=== PATIENT | female | born 1935 | race Caucasian/White ===

== ENCOUNTER 2018-09-22 12:14 | Inpatient (IN) | payer MEDICARE, MEDICAID ==
[2018-09-22 12:59] LABS: ADD MAN DIFF? NO
[2018-09-22 13:07] LABS: WHITE BLOOD COUNT 10.9 10^3/ul (4.8-10.8)
[2018-09-22 13:07] LABS: ABNORMAL IP MESSAGE 1; BASOPHILS % 0.2 % (0.0-2.0); EOSINOPHILS % 0.1 % (0.0-7.0); HEMATOCRIT 21.2 % (37.0-47.0); LYMPHOCYTES # 1.2 10^3/ul (0.8-2.9); LYMPHOCYTES % 10.8 % (15.0-51.0); MEAN CORPUSCULAR HEMOGLOBIN 28.9 pg (29.0-33.0); MEAN CORPUSCULAR HGB CONC 32.1 g/dl (32.0-37.0); MEAN CORPUSCULAR VOLUME 90.2 fl (82.0-101.0); MEAN PLATELET VOLUME 10.8 fl (7.4-10.4); MONOCYTE # 0.4 10^3/ul (0.3-0.9); NEUTROPHIL # 9.2 10^3/ul (1.6-7.5); NEUTROPHILS % 84.4 % (39.0-77.0); PLATELET COUNT 272 10^3/UL (140-415); RED BLOOD COUNT 2.35 10^6/ul (4.20-5.40)
[2018-09-22 13:16] LABS: HEMOGLOBIN 6.8 g/dl (12.0-16.0); POSITIVE DIFF @See below
[2018-09-22] MEDS: SOD CHLORIDE 0.9% 500 ML IV (13:17)
[2018-09-22 13:26] LABS: INR 1.02; PARTIAL THROMBOPLASTIN TIME 29.3 Sec (23.0-35.0); PROTIME 13.5 Sec (11.9-14.9); PT RATIO 1.1
[2018-09-22] MEDS: SOD CHLORIDE 0.9% 0 ML IV (13:31)
[2018-09-22 13:35] LABS: LIPASE 143 U/L (23-300)
[2018-09-22 13:37] LABS: ALANINE AMINOTRANSFERASE 7 IU/L (13-69); ALBUMIN/GLOBULIN RATIO 1.21; ALKALINE PHOSPHATASE 90 IU/L (42-121); ANION GAP 15 (5-13); ASPARTATE AMINO TRANSFERASE 38 IU/L (15-46); BILIRUBIN,INDIRECT 0.1 mg/dl (0-1.1); BILIRUBIN,TOTAL 0.1 mg/dl (0.2-1.3); BLOOD UREA NITROGEN 82 mg/dl (7-20); CALCIUM 9.1 mg/dl (8.4-10.2); CARBON DIOXIDE 21 mmol/L (21-31); CHLORIDE 112 mmol/L (97-110); CREATININE 2.43 mg/dl (0.44-1.00); GLUCOSE 263 mg/dl (70-220); POTASSIUM 3.6 mmol/L (3.5-5.1); SODIUM 148 mmol/L (135-144); TOTAL PROTEIN 7.3 g/dl (6.1-8.1)
[2018-09-22] MEDS: ONDANSETRON 4 MG INJ IV (13:40)
[2018-09-22] MEDS: PANTOPRAZOLE 40 MG INJ IV (13:41)
[2018-09-22 13:55] LABS: OCCULT BLOOD STOOL POSITIVE (NEGATIVE)
[2018-09-22] MEDS ORDERED: ACETAMINOPHEN 325 MG TAB PO (14:00)
[2018-09-22] MEDS ORDERED: ONDANSETRON 4 MG INJ IV (14:00)
[2018-09-22 14:55] LABS: ANISOCYTOSIS 1+ (0-0); BAND NEUTROPHILS #M 0.1 10^3/ul (0.0-0.6); BAND NEUTROPHILS % (M) 1 % (0-4); BURR CELLS 1+ (0-0); GIANT THROMBO% (M) 1 % (0-0); LYMPHOCYTES #M 1.3 10^3/ul (0.8-2.9); LYMPHOCYTES % (M) 12 % (15-51); MICROCYTOSIS 1+ (0-0); MONOCYTE #M 0.3 10^3/ul (0.3-0.9); MONOCYTES % (M) 3 % (0-11); OVALOCYTES 1+ (0-0); PLATELET ESTIMATE NORMAL; POIKILOCYTOSIS 2+ (0-0); SEG NEUT #M 9.2 10^3/ul (1.6-7.5); SEGMENTED NEUTROPHILS (M) % 84 % (39-77); SMUDGE%M 32 % (0-0)
[2018-09-22] MEDS ORDERED: ACETAMINOPHEN 650 MG SUPP PR (18:30)
[2018-09-22] MEDS: D5W-0.45 NACL + KCL 20 MEQ 1,000 ML IV (18:46)
[2018-09-22] MEDS ORDERED: GLUCAGON 1 MG INJ IM (19:00)
[2018-09-22] MEDS ORDERED: DEXTROSE 50% 50 ML SYRINGE IV ×2 (19:00)
[2018-09-22] MEDS ORDERED: GLUCOSE GEL 15 GRAM TUBE PO ×2 (19:00)
[2018-09-22] MEDS ORDERED: GLUCOSE GEL 15 GRAM TUBE BUCCAL (19:00)
[2018-09-22 19:01] LABS: HEMOGLOBIN A1C 6.1 % (0-5.9)
[2018-09-22] MEDS: INSULIN ASPART [NOVOLOG] 3 ML PEN SC (20:56)
[2018-09-22 22:31] LABS: IMMEDIATE SPIN CROSSMATCH 1 2
[2018-09-22] MEDS: FUROSEMIDE 20 MG INJ IV (23:59)
[2018-09-23] MEDS: INSULIN ASPART [NOVOLOG] 3 ML PEN SC ×4 (00:07→18:05)
[2018-09-23] MEDS: morphine 2 MG INJ IV (00:19)
[2018-09-23] MEDS ORDERED: ACCU-CHEK XX (02:00)
[2018-09-23 03:25] LABS: ADD MAN DIFF? NO
[2018-09-23 03:47] LABS: ALANINE AMINOTRANSFERASE 14 IU/L (13-69); ALBUMIN 3.2 g/dl (3.3-4.9); ALKALINE PHOSPHATASE 65 IU/L (42-121); ANION GAP 9 (5-13); ASPARTATE AMINO TRANSFERASE 79 IU/L (15-46); BILIRUBIN,INDIRECT 0.3 mg/dl (0-1.1); BILIRUBIN,TOTAL 0.3 mg/dl (0.2-1.3); BLOOD UREA NITROGEN 77 mg/dl (7-20); CALCIUM 8.3 mg/dl (8.4-10.2); CARBON DIOXIDE 22 mmol/L (21-31); CHLORIDE 116 mmol/L (97-110); CREATININE 2.27 mg/dl (0.44-1.00); GLUCOSE 203 mg/dl (70-220); POTASSIUM 3.8 mmol/L (3.5-5.1); SODIUM 147 mmol/L (135-144); TOTAL PROTEIN 5.8 g/dl (6.1-8.1)
[2018-09-23 03:54] LABS: PHOSPHORUS 4.2 mg/dl (2.5-4.9)
[2018-09-23 03:54] LABS: CHOL/HDL RATIO 4.3 RATIO; CHOLESTEROL 143 mg/dl (100-200); HDL CHOLESTEROL 33 mg/dl (33-92); LDL CHOLESTEROL,CALCULATED 77 mg/dl; LIPASE 123 U/L (23-300); MAGNESIUM 2.5 mg/dl (1.7-2.5); TRIGLYCERIDES 163 mg/dl (0-149)
[2018-09-23 04:04] LABS: BASOPHIL # 0.1 10^3/ul (0.0-0.1); BASOPHILS % 0.7 % (0.0-2.0); EOSINOPHILS % 0.1 % (0.0-7.0); HEMATOCRIT 25.2 % (37.0-47.0); HEMOGLOBIN 8.2 g/dl (12.0-16.0); LYMPHOCYTES # 1.5 10^3/ul (0.8-2.9); LYMPHOCYTES % 16.7 % (15.0-51.0); MEAN CORPUSCULAR HGB CONC 32.5 g/dl (32.0-37.0); MEAN PLATELET VOLUME 11.2 fl (7.4-10.4); MONOCYTE # 0.8 10^3/ul (0.3-0.9); MONOCYTES % 9.1 % (0.0-11.0); NEUTROPHIL # 6.7 10^3/ul (1.6-7.5); NEUTROPHILS % 73.1 % (39.0-77.0); PLATELET COUNT 188 10^3/UL (140-415); RED BLOOD COUNT 2.83 10^6/ul (4.20-5.40); RED CELL DISTRIBUTION WIDTH 13.9 % (11.5-14.5)
[2018-09-23 04:04] LABS: WHITE BLOOD COUNT 9.1 10^3/ul (4.8-10.8)
[2018-09-23 04:23] LABS: B-TYPE NATRIURETIC PEPTIDE 45200 PG/ML (0-450)
[2018-09-23] MEDS: PANTOPRAZOLE 40 MG INJ IV (05:59)
[2018-09-23] MEDS: D5W-0.45 NACL + KCL 20 MEQ 1,000 ML IV (07:39)
[2018-09-23] MEDS: ATENOLOL 50 MG TAB PO (09:17)
[2018-09-23 12:30] LABS: HEMATOCRIT 26.7 % (37.0-47.0); HEMOGLOBIN 8.7 g/dl (12.0-16.0)
[2018-09-23] MEDS: POTASSIUM CHLORIDE 100 ML IVPB (12:51)
[2018-09-23] MEDS: FUROSEMIDE 40 MG INJ IV (12:51)
[2018-09-23 18:27] LABS: HEMATOCRIT 28.8 % (37.0-47.0); HEMOGLOBIN 9.2 g/dl (12.0-16.0)
[2018-09-23] MEDS: ATORVASTATIN 10 MG TAB PO (21:00)
[2018-09-24] MEDS: INSULIN ASPART [NOVOLOG] 3 ML PEN SC ×5 (00:06→21:02)
[2018-09-24 04:56] LABS: ADD MAN DIFF? NO
[2018-09-24 05:10] LABS: WHITE BLOOD COUNT 8.1 10^3/ul (4.8-10.8)
[2018-09-24 05:10] LABS: BASOPHIL # 0.1 10^3/ul (0.0-0.1); BASOPHILS % 0.6 % (0.0-2.0); EOSINOPHILS # 0.1 10^3/ul (0.0-0.5); EOSINOPHILS % 0.7 % (0.0-7.0); HEMATOCRIT 25.7 % (37.0-47.0); HEMOGLOBIN 8.2 g/dl (12.0-16.0); LYMPHOCYTES # 1.6 10^3/ul (0.8-2.9); LYMPHOCYTES % 19.1 % (15.0-51.0); MEAN CORPUSCULAR HEMOGLOBIN 28.7 pg (29.0-33.0); MEAN CORPUSCULAR HGB CONC 31.9 g/dl (32.0-37.0); MEAN CORPUSCULAR VOLUME 89.9 fl (82.0-101.0); MEAN PLATELET VOLUME 11.4 fl (7.4-10.4); MONOCYTE # 0.5 10^3/ul (0.3-0.9); MONOCYTES % 6.5 % (0.0-11.0); NEUTROPHIL # 5.9 10^3/ul (1.6-7.5); NEUTROPHILS % 72.4 % (39.0-77.0); NUCLEATED RED BLOOD CELLS # 0.1 10^3/ul (0.0-0.0); NUCLEATED RED BLOOD CELLS% 0.9 /100WBC (0.0-0.0); PLATELET COUNT 186 10^3/UL (140-415); RED BLOOD COUNT 2.86 10^6/ul (4.20-5.40); RED CELL DISTRIBUTION WIDTH 14.6 % (11.5-14.5)
[2018-09-24] MEDS: PANTOPRAZOLE 40 MG INJ IV ×3 (05:13→20:54)
[2018-09-24 05:33] LABS: ANION GAP 8 (5-13); BLOOD UREA NITROGEN 78 mg/dl (7-20); CALCIUM 8.6 mg/dl (8.4-10.2); CARBON DIOXIDE 22 mmol/L (21-31); CHLORIDE 117 mmol/L (97-110); CREATININE 2.81 mg/dl (0.44-1.00); GLUCOSE 136 mg/dl (70-220); POTASSIUM 4.6 mmol/L (3.5-5.1); SODIUM 147 mmol/L (135-144)
[2018-09-24 08:06] LABS: HEMATOCRIT 26.7 % (37.0-47.0); HEMOGLOBIN 8.4 g/dl (12.0-16.0)
[2018-09-24 08:26] LABS: MAGNESIUM 2.3 mg/dl (1.7-2.5)
[2018-09-24] MEDS: ATENOLOL 50 MG TAB PO (09:00)
[2018-09-24] MEDS: D5W-0.45 NACL + KCL 20 MEQ 1,000 ML IV (09:15)
[2018-09-24] MEDS: DEXTROSE 5%-0.45% NACL 1,000 ML IV (15:48)
[2018-09-24 19:35] LABS: HEMATOCRIT 25.6 % (37.0-47.0); HEMOGLOBIN 8.2 g/dl (12.0-16.0)
[2018-09-24] MEDS: ATORVASTATIN 10 MG TAB PO (20:54)
[2018-09-25 00:39] LABS: HEMATOCRIT 27.4 % (37.0-47.0); HEMOGLOBIN 8.8 g/dl (12.0-16.0)
[2018-09-25 05:47] LABS: WHITE BLOOD COUNT 10.8 10^3/ul (4.8-10.8)
[2018-09-25 05:47] LABS: ADD MAN DIFF? NO; BASOPHIL # 0.1 10^3/ul (0.0-0.1); BASOPHILS % 0.7 % (0.0-2.0); EOSINOPHILS # 0.2 10^3/ul (0.0-0.5); EOSINOPHILS % 1.6 % (0.0-7.0); HEMATOCRIT 27.9 % (37.0-47.0); HEMOGLOBIN 8.7 g/dl (12.0-16.0); LYMPHOCYTES # 3.3 10^3/ul (0.8-2.9); LYMPHOCYTES % 30.4 % (15.0-51.0); MEAN CORPUSCULAR HEMOGLOBIN 29.4 pg (29.0-33.0); MEAN CORPUSCULAR HGB CONC 31.2 g/dl (32.0-37.0); MEAN CORPUSCULAR VOLUME 94.3 fl (82.0-101.0); MEAN PLATELET VOLUME 11.7 fl (7.4-10.4); MONOCYTE # 0.8 10^3/ul (0.3-0.9); MONOCYTES % 7.6 % (0.0-11.0); NEUTROPHIL # 6.4 10^3/ul (1.6-7.5); NEUTROPHILS % 59.2 % (39.0-77.0); NUCLEATED RED BLOOD CELLS # 0.1 10^3/ul (0.0-0.0); NUCLEATED RED BLOOD CELLS% 1.2 /100WBC (0.0-0.0); PLATELET COUNT 183 10^3/UL (140-415); RED BLOOD COUNT 2.96 10^6/ul (4.20-5.40); RED CELL DISTRIBUTION WIDTH 14.5 % (11.5-14.5)
[2018-09-25 06:23] LABS: ALANINE AMINOTRANSFERASE 18 IU/L (13-69); ALBUMIN 3.3 g/dl (3.3-4.9); ALBUMIN/GLOBULIN RATIO 1.13; ALKALINE PHOSPHATASE 65 IU/L (42-121); ANION GAP 10 (5-13); ASPARTATE AMINO TRANSFERASE 43 IU/L (15-46); BILIRUBIN,INDIRECT 0.5 mg/dl (0-1.1); BILIRUBIN,TOTAL 0.5 mg/dl (0.2-1.3); BLOOD UREA NITROGEN 77 mg/dl (7-20); CALCIUM 8.6 mg/dl (8.4-10.2); CARBON DIOXIDE 18 mmol/L (21-31); CHLORIDE 119 mmol/L (97-110); GLUCOSE 134 mg/dl (70-220); POTASSIUM 4.6 mmol/L (3.5-5.1); SODIUM 147 mmol/L (135-144); TOTAL PROTEIN 6.2 g/dl (6.1-8.1)
[2018-09-25] MEDS ORDERED: PROPOFOL 200 MG INJ (07:00)
[2018-09-25] MEDS ORDERED: LIDOCAINE 2% (SDV) 5 ML INJ (07:00)
[2018-09-25] MEDS: ATENOLOL 50 MG TAB PO (08:12)
[2018-09-25] MEDS: INSULIN ASPART [NOVOLOG] 3 ML PEN SC ×4 (08:33→21:00)
[2018-09-25] MEDS: PANTOPRAZOLE 40 MG INJ IV ×2 (10:38→20:57)
[2018-09-25] MEDS: DEXTROSE 5%-0.45% NACL 1,000 ML IV (10:39)
[2018-09-25] MEDS ORDERED: FENTAnyl 50 MCG/ML VIAL (10:59)
[2018-09-25 13:50] LABS: ADD UMIC YES; UR AMORPHOUS CRYSTAL MODERATE /HPF (NONE SEEN); UR ASCORBIC ACID 20 mg/dL (NEGATIVE); UR BACTERIA MODERATE /HPF (NONE SEEN); UR BILIRUBIN (Dip) NEGATIVE (NEGATIVE); UR BLOOD (Dip) 1+ mg/dL (NEGATIVE); UR CLARITY CLOUDY (CLEAR); UR COLOR AMBER (YELLOW); UR GLUCOSE (Dip) NEGATIVE (NEGATIVE); UR KETONES (Dip) TRACE mg/dL (NEGATIVE); UR LEUKOCYTE ESTERASE (Dip) 2+ Leu/ul (NEGATIVE); UR NITRITE (Dip) NEGATIVE (NEGATIVE); UR RBC 13 /HPF (0-5); UR SPECIFIC GRAVITY (Dip) 1.016 (1.003-1.030); UR TOTAL PROTEIN (Dip) 2+ mg/dl (NEGATIVE); UR UROBILINOGEN (Dip) NEGATIVE (NEGATIVE); UR WBC 116 /HPF (0-5)
[2018-09-25 14:11] LABS: PROTEIN/CREAT RATIO 2.16 RATIO
[2018-09-25] MEDS ORDERED: NITROGLYCERIN 2% 1 GM OINT PKT TD (19:00)
[2018-09-25] MEDS: METOPROLOL 5 MG INJ IV (20:00)
[2018-09-25] MEDS: ATORVASTATIN 10 MG TAB PO (20:56)
[2018-09-26] MEDS: DEXTROSE 5%-0.45% NACL 1,000 ML IV (04:05)
[2018-09-26 05:11] LABS: ADD MAN DIFF? NO
[2018-09-26 05:20] LABS: BASOPHILS % 0.4 % (0.0-2.0); EOSINOPHILS # 0.1 10^3/ul (0.0-0.5); EOSINOPHILS % 1.3 % (0.0-7.0); HEMATOCRIT 27.7 % (37.0-47.0); HEMOGLOBIN 8.7 g/dl (12.0-16.0); LYMPHOCYTES # 1.9 10^3/ul (0.8-2.9); LYMPHOCYTES % 20.1 % (15.0-51.0); MEAN CORPUSCULAR HEMOGLOBIN 29.1 pg (29.0-33.0); MEAN CORPUSCULAR HGB CONC 31.4 g/dl (32.0-37.0); MEAN CORPUSCULAR VOLUME 92.6 fl (82.0-101.0); MEAN PLATELET VOLUME 11.4 fl (7.4-10.4); MONOCYTE # 0.6 10^3/ul (0.3-0.9); MONOCYTES % 6.7 % (0.0-11.0); NEUTROPHIL # 6.5 10^3/ul (1.6-7.5); NUCLEATED RED BLOOD CELLS # 0.2 10^3/ul (0.0-0.0); NUCLEATED RED BLOOD CELLS% 2.1 /100WBC (0.0-0.0); PLATELET COUNT 180 10^3/UL (140-415); RED BLOOD COUNT 2.99 10^6/ul (4.20-5.40); RED CELL DISTRIBUTION WIDTH 14.4 % (11.5-14.5)
[2018-09-26 05:20] LABS: WHITE BLOOD COUNT 9.2 10^3/ul (4.8-10.8)
[2018-09-26 05:39] LABS: INR 1.15; PROTIME 14.8 Sec (11.9-14.9); PT RATIO 1.2
[2018-09-26 05:40] LABS: PARTIAL THROMBOPLASTIN TIME 31.3 Sec (23.0-35.0)
[2018-09-26 05:48] LABS: ALANINE AMINOTRANSFERASE 14 IU/L (13-69); ALBUMIN 3.2 g/dl (3.3-4.9); ALKALINE PHOSPHATASE 80 IU/L (42-121); ANION GAP 9 (5-13); ASPARTATE AMINO TRANSFERASE 31 IU/L (15-46); BILIRUBIN,INDIRECT 0.6 mg/dl (0-1.1); BILIRUBIN,TOTAL 0.6 mg/dl (0.2-1.3); BLOOD UREA NITROGEN 69 mg/dl (7-20); CALCIUM 8.6 mg/dl (8.4-10.2); CARBON DIOXIDE 19 mmol/L (21-31); CHLORIDE 121 mmol/L (97-110); CREATININE 2.69 mg/dl (0.44-1.00); GLUCOSE 202 mg/dl (70-220); POTASSIUM 4.8 mmol/L (3.5-5.1); SODIUM 149 mmol/L (135-144); TOTAL PROTEIN 6.4 g/dl (6.1-8.1)
[2018-09-26] MEDS: METOPROLOL 5 MG INJ IV ×4 (06:21→17:38)
[2018-09-26] MEDS: PANTOPRAZOLE 40 MG INJ IV ×2 (08:19→20:48)
[2018-09-26] MEDS: INSULIN ASPART [NOVOLOG] 3 ML PEN SC ×4 (08:23→20:49)
[2018-09-26 10:01] LABS: PARATHYROID HORMONE 220.1 pg/ml (24.0-73.0)
[2018-09-26] MEDS: BUMETANIDE 1 MG INJ IV ×2 (10:17→17:38)
[2018-09-26] MEDS: DEXTROSE 5% 1,000 ML IV ×2 (10:17→18:48)
[2018-09-26] MEDS: INSULIN GLARGINE [LANTus] (100 UNITS/ML) SYG SC (11:55)
[2018-09-26] MEDS: NITROGLYCERIN 2% 1 GM OINT PKT TD ×2 (13:08→22:00)
[2018-09-26] MEDS: morphine 2 MG INJ IV (15:32)
[2018-09-26 15:34] LABS: SODIUM,URINE RANDOM 22 mmol/L (30-90)
[2018-09-26 15:34] LABS: CREATININE,URINE RANDOM 84.85 mg/dl (20-320)
[2018-09-26] MEDS: ATORVASTATIN 10 MG TAB PO (20:48)
[2018-09-27 05:42] LABS: ADD MAN DIFF? NO
[2018-09-27 05:47] LABS: BASOPHIL # 0.1 10^3/ul (0.0-0.1); BASOPHILS % 0.5 % (0.0-2.0); EOSINOPHILS # 0.4 10^3/ul (0.0-0.5); EOSINOPHILS % 3.6 % (0.0-7.0); HEMATOCRIT 27.9 % (37.0-47.0); LYMPHOCYTES # 2.1 10^3/ul (0.8-2.9); LYMPHOCYTES % 19.7 % (15.0-51.0); MEAN CORPUSCULAR HEMOGLOBIN 29.4 pg (29.0-33.0); MEAN CORPUSCULAR HGB CONC 32.3 g/dl (32.0-37.0); MEAN CORPUSCULAR VOLUME 91.2 fl (82.0-101.0); MEAN PLATELET VOLUME 11.3 fl (7.4-10.4); MONOCYTE # 0.8 10^3/ul (0.3-0.9); MONOCYTES % 7.9 % (0.0-11.0); NEUTROPHIL # 7.2 10^3/ul (1.6-7.5); NEUTROPHILS % 67.8 % (39.0-77.0); NUCLEATED RED BLOOD CELLS # 0.2 10^3/ul (0.0-0.0); NUCLEATED RED BLOOD CELLS% 1.5 /100WBC (0.0-0.0); PLATELET COUNT 181 10^3/UL (140-415); RED BLOOD COUNT 3.06 10^6/ul (4.20-5.40); RED CELL DISTRIBUTION WIDTH 14.5 % (11.5-14.5)
[2018-09-27 05:47] LABS: WHITE BLOOD COUNT 10.7 10^3/ul (4.8-10.8)
[2018-09-27] MEDS: DEXTROSE 5% 1,000 ML IV (05:47)
[2018-09-27] MEDS: morphine 2 MG INJ IV (05:50)
[2018-09-27] MEDS: METOPROLOL 5 MG INJ IV ×5 (05:51→22:20)
[2018-09-27] MEDS: NITROGLYCERIN 2% 1 GM OINT PKT TD ×3 (05:52→22:21)
[2018-09-27] MEDS: BUMETANIDE 1 MG INJ IV (05:52)
[2018-09-27 06:20] LABS: ANION GAP 9 (5-13); BLOOD UREA NITROGEN 60 mg/dl (7-20); CALCIUM 8.4 mg/dl (8.4-10.2); CARBON DIOXIDE 19 mmol/L (21-31); CHLORIDE 118 mmol/L (97-110); CREATININE 2.66 mg/dl (0.44-1.00); GLUCOSE 90 mg/dl (70-220); POTASSIUM 3.2 mmol/L (3.5-5.1); SODIUM 146 mmol/L (135-144)
[2018-09-27 06:26] LABS: ALANINE AMINOTRANSFERASE 20 IU/L (13-69); ALBUMIN/GLOBULIN RATIO 1.11; ALKALINE PHOSPHATASE 70 IU/L (42-121); ANION GAP 9 (5-13); ASPARTATE AMINO TRANSFERASE 19 IU/L (15-46); BILIRUBIN,INDIRECT 0.6 mg/dl (0-1.1); BILIRUBIN,TOTAL 0.6 mg/dl (0.2-1.3); BLOOD UREA NITROGEN 61 mg/dl (7-20); CALCIUM 8.6 mg/dl (8.4-10.2); CARBON DIOXIDE 19 mmol/L (21-31); CHLORIDE 116 mmol/L (97-110); CREATININE 2.62 mg/dl (0.44-1.00); GLUCOSE 88 mg/dl (70-220); MAGNESIUM 2.2 mg/dl (1.7-2.5); PHOSPHORUS 3.4 mg/dl (2.5-4.9); POTASSIUM 3.2 mmol/L (3.5-5.1); SODIUM 144 mmol/L (135-144); TOTAL PROTEIN 5.7 g/dl (6.1-8.1)
[2018-09-27] MEDS ORDERED: CIPRO 400 MG/200 ML D5W IVPB (07:00)
[2018-09-27 07:20] LABS: B-TYPE NATRIURETIC PEPTIDE 75800 PG/ML (0-450)
[2018-09-27] MEDS ORDERED: INSULIN GLARGINE [LANTus] (100 UNITS/ML) SYG SC (08:00)
[2018-09-27] MEDS: INSULIN ASPART [NOVOLOG] 3 ML PEN SC ×4 (08:00→21:00)
[2018-09-27] MEDS: INSULIN GLARGINE [LANTus] (100 UNITS/ML) SYG SC (08:00)
[2018-09-27] MEDS: PANTOPRAZOLE 40 MG INJ IV ×2 (08:34→22:22)
[2018-09-27] MEDS: POTASSIUM CHLORIDE 100 ML IVPB ×2 (10:46→16:42)
[2018-09-27] MEDS: MIDAZOLAM 1 MG/ML 2 ML INJ (13:45)
[2018-09-27] MEDS: FENTAnyl 50 MCG/ML VIAL (13:45)
[2018-09-27] MEDS: ESMOLOL 10 ML (13:46)
[2018-09-27] MEDS: LIDOCAINE 2% (SDV) 5 ML INJ (13:46)
[2018-09-27] MEDS: PHENYLephrine (100 MCG/ML) 10ML SYG (13:46)
[2018-09-27] MEDS: ETOMIDATE 20 MG INJ (13:46)
[2018-09-27] MEDS: CEFTRIAXONE 1 GM/50 ML (PMX) 50 ML IVPB (17:49)
[2018-09-27] MEDS: ATORVASTATIN 10 MG TAB PO (22:19)
[2018-09-28] MEDS: DEXTROSE 5% 1,000 ML IV (01:00)
[2018-09-28 05:43] LABS: ADD MAN DIFF? NO
[2018-09-28 05:46] LABS: BASOPHILS % 0.3 % (0.0-2.0); EOSINOPHILS # 0.2 10^3/ul (0.0-0.5); EOSINOPHILS % 1.4 % (0.0-7.0); HEMATOCRIT 26.6 % (37.0-47.0); HEMOGLOBIN 8.5 g/dl (12.0-16.0); LYMPHOCYTES # 1.6 10^3/ul (0.8-2.9); LYMPHOCYTES % 13.5 % (15.0-51.0); MEAN CORPUSCULAR HEMOGLOBIN 29.2 pg (29.0-33.0); MEAN CORPUSCULAR VOLUME 91.4 fl (82.0-101.0); MEAN PLATELET VOLUME 11.5 fl (7.4-10.4); MONOCYTE # 0.7 10^3/ul (0.3-0.9); NEUTROPHIL # 9.2 10^3/ul (1.6-7.5); NEUTROPHILS % 78.1 % (39.0-77.0); NUCLEATED RED BLOOD CELLS # 0.1 10^3/ul (0.0-0.0); NUCLEATED RED BLOOD CELLS% 0.7 /100WBC (0.0-0.0); PLATELET COUNT 157 10^3/UL (140-415); RED BLOOD COUNT 2.91 10^6/ul (4.20-5.40); RED CELL DISTRIBUTION WIDTH 14.3 % (11.5-14.5)
[2018-09-28 05:46] LABS: WHITE BLOOD COUNT 11.7 10^3/ul (4.8-10.8)
[2018-09-28] MEDS: METOPROLOL 5 MG INJ IV (06:04)
[2018-09-28] MEDS: NITROGLYCERIN 2% 1 GM OINT PKT TD ×3 (06:04→21:05)
[2018-09-28 06:28] LABS: ALANINE AMINOTRANSFERASE 16 IU/L (13-69); ALBUMIN 2.7 g/dl (3.3-4.9); ALBUMIN/GLOBULIN RATIO 0.96; ALKALINE PHOSPHATASE 71 IU/L (42-121); ANION GAP 7 (5-13); ASPARTATE AMINO TRANSFERASE 15 IU/L (15-46); BILIRUBIN,INDIRECT 0.5 mg/dl (0-1.1); BILIRUBIN,TOTAL 0.5 mg/dl (0.2-1.3); BLOOD UREA NITROGEN 56 mg/dl (7-20); CALCIUM 8.1 mg/dl (8.4-10.2); CARBON DIOXIDE 21 mmol/L (21-31); CHLORIDE 113 mmol/L (97-110); CREATININE 2.69 mg/dl (0.44-1.00); GLUCOSE 207 mg/dl (70-220); POTASSIUM 3.7 mmol/L (3.5-5.1); SODIUM 141 mmol/L (135-144); TOTAL PROTEIN 5.5 g/dl (6.1-8.1)
[2018-09-28] MEDS: PANTOPRAZOLE 40 MG INJ IV ×2 (08:50→21:04)
[2018-09-28] MEDS: INSULIN ASPART [NOVOLOG] 3 ML PEN SC ×2 (08:53→12:00)
[2018-09-28] MEDS: INSULIN GLARGINE [LANTus] (100 UNITS/ML) SYG SC (08:54)
[2018-09-28] MEDS: METOPROLOL 25 MG TAB GTB ×3 (09:30→21:04)
[2018-09-28] MEDS: POTASSIUM CHLORIDE 20 MEQ POWDER FOR ORAL SOLN GTB (12:09)
[2018-09-28] MEDS: BUMETANIDE 1 MG INJ IV (12:10)
[2018-09-28] MEDS: CEFTRIAXONE 1 GM/50 ML (PMX) 50 ML IVPB (17:09)
[2018-09-28] MEDS: Insulin NOVOLOG SS MODERATE Algorithm(NPO/TPN/ENTERAL FEEDS) SC (17:11)
[2018-09-28] MEDS ORDERED: INSULIN ASPART [NOVOLOG] 3 ML PEN SC (18:00)
[2018-09-28 20:40] LABS: TOTAL IRON BINDING CAPACITY 239 ug/dl (241-421)
[2018-09-28 20:41] LABS: IRON < 10 ug/dl (35-150)
[2018-09-28] MEDS: ATORVASTATIN 10 MG TAB PO (21:04)
[2018-09-28 21:07] LABS: FERRITIN 25.8 ng/ml (11.1-264.0)
[2018-09-29] MEDS: Insulin NOVOLOG SS MODERATE Algorithm(NPO/TPN/ENTERAL FEEDS) SC ×4 (00:28→17:51)
[2018-09-29] MEDS: EPOETIN ALFA-EPBX (ESRD) 10,000 UNIT/ML VIAL SC (02:21)
[2018-09-29] MEDS: LORAZEPAM 0.5 MG TAB PO (05:54)
[2018-09-29 06:15] LABS: ADD MAN DIFF? NO
[2018-09-29] MEDS: NITROGLYCERIN 2% 1 GM OINT PKT TD ×3 (06:32→21:17)
[2018-09-29 06:37] LABS: BASOPHILS % 0.3 % (0.0-2.0); EOSINOPHILS # 0.3 10^3/ul (0.0-0.5); EOSINOPHILS % 2.6 % (0.0-7.0); HEMATOCRIT 25.5 % (37.0-47.0); HEMOGLOBIN 8.2 g/dl (12.0-16.0); LYMPHOCYTES # 1.5 10^3/ul (0.8-2.9); LYMPHOCYTES % 14.7 % (15.0-51.0); MEAN CORPUSCULAR HEMOGLOBIN 28.7 pg (29.0-33.0); MEAN CORPUSCULAR HGB CONC 32.2 g/dl (32.0-37.0); MEAN CORPUSCULAR VOLUME 89.2 fl (82.0-101.0); MEAN PLATELET VOLUME 11.6 fl (7.4-10.4); MONOCYTE # 0.7 10^3/ul (0.3-0.9); MONOCYTES % 6.9 % (0.0-11.0); NEUTROPHIL # 7.5 10^3/ul (1.6-7.5); NEUTROPHILS % 74.8 % (39.0-77.0); NUCLEATED RED BLOOD CELLS% 0.3 /100WBC (0.0-0.0); PLATELET COUNT 155 10^3/UL (140-415); RED BLOOD COUNT 2.86 10^6/ul (4.20-5.40); RED CELL DISTRIBUTION WIDTH 14.3 % (11.5-14.5)
[2018-09-29 06:56] LABS: ALANINE AMINOTRANSFERASE 15 IU/L (13-69); ALBUMIN 2.7 g/dl (3.3-4.9); ALBUMIN/GLOBULIN RATIO 0.96; ALKALINE PHOSPHATASE 89 IU/L (42-121); ANION GAP 6 (5-13); ASPARTATE AMINO TRANSFERASE 16 IU/L (15-46); BILIRUBIN,INDIRECT 0.3 mg/dl (0-1.1); BILIRUBIN,TOTAL 0.3 mg/dl (0.2-1.3); BLOOD UREA NITROGEN 58 mg/dl (7-20); CALCIUM 7.7 mg/dl (8.4-10.2); CARBON DIOXIDE 22 mmol/L (21-31); CHLORIDE 111 mmol/L (97-110); CREATININE 2.72 mg/dl (0.44-1.00); GLUCOSE 171 mg/dl (70-220); POTASSIUM 3.9 mmol/L (3.5-5.1); SODIUM 139 mmol/L (135-144); TOTAL PROTEIN 5.5 g/dl (6.1-8.1)
[2018-09-29] MEDS: PANTOPRAZOLE 40 MG INJ IV ×2 (08:52→21:17)
[2018-09-29] MEDS: POTASSIUM CHLORIDE 20 MEQ POWDER FOR ORAL SOLN GTB (08:52)
[2018-09-29] MEDS: DONEPEZIL 5 MG TAB PO (08:52)
[2018-09-29] MEDS: METOPROLOL 25 MG TAB GTB ×2 (08:53→21:17)
[2018-09-29] MEDS: BUMETANIDE 1 MG INJ IV (08:53)
[2018-09-29] MEDS: INSULIN GLARGINE [LANTus] (100 UNITS/ML) SYG SC (09:08)
[2018-09-29] MEDS: CEFTRIAXONE 1 GM/50 ML (PMX) 50 ML IVPB (17:36)
[2018-09-29] MEDS: ATORVASTATIN 10 MG TAB PO (21:17)
[2018-09-30] MEDS: Insulin NOVOLOG SS MODERATE Algorithm(NPO/TPN/ENTERAL FEEDS) SC ×4 (00:12→17:15)
[2018-09-30] MEDS: LORAZEPAM 0.5 MG TAB PO (04:14)
[2018-09-30] MEDS: morphine 2 MG INJ IV (04:14)
[2018-09-30 06:00] LABS: ADD MAN DIFF? NO
[2018-09-30 06:06] LABS: BASOPHIL # 0.1 10^3/ul (0.0-0.1); BASOPHILS % 0.5 % (0.0-2.0); EOSINOPHILS # 0.4 10^3/ul (0.0-0.5); HEMATOCRIT 28.5 % (37.0-47.0); HEMOGLOBIN 9.1 g/dl (12.0-16.0); LYMPHOCYTES # 1.9 10^3/ul (0.8-2.9); LYMPHOCYTES % 18.2 % (15.0-51.0); MEAN CORPUSCULAR HEMOGLOBIN 28.8 pg (29.0-33.0); MEAN CORPUSCULAR HGB CONC 31.9 g/dl (32.0-37.0); MEAN CORPUSCULAR VOLUME 90.2 fl (82.0-101.0); MEAN PLATELET VOLUME 11.5 fl (7.4-10.4); MONOCYTE # 0.8 10^3/ul (0.3-0.9); MONOCYTES % 7.9 % (0.0-11.0); NEUTROPHILS % 68.8 % (39.0-77.0); PLATELET COUNT 187 10^3/UL (140-415); RED BLOOD COUNT 3.16 10^6/ul (4.20-5.40); RED CELL DISTRIBUTION WIDTH 14.3 % (11.5-14.5)
[2018-09-30 06:06] LABS: WHITE BLOOD COUNT 10.2 10^3/ul (4.8-10.8)
[2018-09-30] MEDS: NITROGLYCERIN 2% 1 GM OINT PKT TD ×3 (06:22→21:28)
[2018-09-30 06:25] LABS: IRON 14 ug/dl (35-150)
[2018-09-30 06:34] LABS: % IRON SATURATION 6 % SAT (22-52); TOTAL IRON BINDING CAPACITY 242 ug/dl (241-421)
[2018-09-30 06:39] LABS: ALANINE AMINOTRANSFERASE 12 IU/L (13-69); ALBUMIN 3.1 g/dl (3.3-4.9); ALBUMIN/GLOBULIN RATIO 1.03; ALKALINE PHOSPHATASE 113 IU/L (42-121); ANION GAP 7 (5-13); ASPARTATE AMINO TRANSFERASE 16 IU/L (15-46); BILIRUBIN,INDIRECT 0.3 mg/dl (0-1.1); BILIRUBIN,TOTAL 0.3 mg/dl (0.2-1.3); BLOOD UREA NITROGEN 67 mg/dl (7-20); CARBON DIOXIDE 26 mmol/L (21-31); CHLORIDE 107 mmol/L (97-110); CREATININE 2.74 mg/dl (0.44-1.00); GLUCOSE 139 mg/dl (70-220); PHOSPHORUS 3.2 mg/dl (2.5-4.9); POTASSIUM 4.3 mmol/L (3.5-5.1); SODIUM 140 mmol/L (135-144); TOTAL PROTEIN 6.1 g/dl (6.1-8.1)
[2018-09-30 07:05] LABS: FERRITIN 28.8 ng/ml (11.1-264.0)
[2018-09-30] MEDS: METOPROLOL 25 MG TAB GTB ×2 (08:41→21:27)
[2018-09-30] MEDS: DONEPEZIL 5 MG TAB PO (08:41)
[2018-09-30] MEDS: PANTOPRAZOLE 40 MG INJ IV ×2 (08:41→21:27)
[2018-09-30] MEDS: INSULIN GLARGINE [LANTus] (100 UNITS/ML) SYG SC (08:52)
[2018-09-30] MEDS: CIPROFLOXACIN 250 MG TAB GTB (17:41)
[2018-09-30] MEDS: ATORVASTATIN 10 MG TAB PO (21:27)
[2018-10-01] MEDS: CIPROFLOXACIN 250 MG TAB GTB ×2 (05:04→17:25)
[2018-10-01] MEDS: NITROGLYCERIN 2% 1 GM OINT PKT TD ×3 (05:04→21:57)
[2018-10-01] MEDS: Insulin NOVOLOG SS MODERATE Algorithm(NPO/TPN/ENTERAL FEEDS) SC ×4 (05:05→17:31)
[2018-10-01 06:06] LABS: ADD MAN DIFF? NO
[2018-10-01 06:09] LABS: BASOPHIL # 0.1 10^3/ul (0.0-0.1); BASOPHILS % 0.7 % (0.0-2.0); EOSINOPHILS # 0.5 10^3/ul (0.0-0.5); EOSINOPHILS % 5.5 % (0.0-7.0); HEMOGLOBIN 8.6 g/dl (12.0-16.0); LYMPHOCYTES # 2.2 10^3/ul (0.8-2.9); LYMPHOCYTES % 25.2 % (15.0-51.0); MEAN CORPUSCULAR HEMOGLOBIN 28.8 pg (29.0-33.0); MEAN CORPUSCULAR HGB CONC 31.9 g/dl (32.0-37.0); MEAN CORPUSCULAR VOLUME 90.3 fl (82.0-101.0); MEAN PLATELET VOLUME 11.4 fl (7.4-10.4); MONOCYTE # 0.8 10^3/ul (0.3-0.9); MONOCYTES % 8.9 % (0.0-11.0); NEUTROPHIL # 5.2 10^3/ul (1.6-7.5); NEUTROPHILS % 59.2 % (39.0-77.0); PLATELET COUNT 171 10^3/UL (140-415); RED BLOOD COUNT 2.99 10^6/ul (4.20-5.40); RED CELL DISTRIBUTION WIDTH 14.1 % (11.5-14.5)
[2018-10-01 06:09] LABS: WHITE BLOOD COUNT 8.7 10^3/ul (4.8-10.8)
[2018-10-01 06:25] LABS: PHOSPHORUS 3.2 mg/dl (2.5-4.9)
[2018-10-01 06:25] LABS: MAGNESIUM 2.1 mg/dl (1.7-2.5)
[2018-10-01 06:51] LABS: ALANINE AMINOTRANSFERASE 16 IU/L (13-69); ALBUMIN 2.9 g/dl (3.3-4.9); ALBUMIN/GLOBULIN RATIO 0.87; ALKALINE PHOSPHATASE 100 IU/L (42-121); ANION GAP 8 (5-13); ASPARTATE AMINO TRANSFERASE 15 IU/L (15-46); BILIRUBIN,INDIRECT 0.3 mg/dl (0-1.1); BILIRUBIN,TOTAL 0.3 mg/dl (0.2-1.3); BLOOD UREA NITROGEN 70 mg/dl (7-20); CARBON DIOXIDE 27 mmol/L (21-31); CHLORIDE 106 mmol/L (97-110); CREATININE 2.55 mg/dl (0.44-1.00); GLUCOSE 90 mg/dl (70-220); POTASSIUM 4.6 mmol/L (3.5-5.1); SODIUM 141 mmol/L (135-144); TOTAL PROTEIN 6.2 g/dl (6.1-8.1)
[2018-10-01] MEDS: INSULIN GLARGINE [LANTus] (100 UNITS/ML) SYG SC (07:58)
[2018-10-01] MEDS: PANTOPRAZOLE 40 MG INJ IV ×2 (09:09→21:57)
[2018-10-01] MEDS: METOPROLOL 25 MG TAB GTB ×2 (09:10→21:57)
[2018-10-01] MEDS: DONEPEZIL 5 MG TAB PO (09:10)
[2018-10-01] MEDS: POLYETHYLENE GLYCOL 17 GM PACKET GTB (10:15)
[2018-10-01] MEDS: DOCUSATE SODIUM 100 MG CAP PO (11:36)
[2018-10-01] MEDS: BISACODYL (EC) 5 MG TAB PO (11:37)
[2018-10-01] MEDS: DOCUSATE SODIUM 10 MG/ML (10ML CUP) GTB ×2 (11:42→21:57)
[2018-10-01] MEDS: BISACODYL 10 MG SUPP PR (11:42)
[2018-10-01] MEDS: ONDANSETRON 4 MG INJ IV (12:11)
[2018-10-01] MEDS: METOCLOPRAMIDE 10 MG INJ IV ×2 (14:47→21:57)
[2018-10-01] MEDS ORDERED: EPOETIN ALFA-EPBX (ESRD) 10,000 UNIT/ML VIAL SC (17:00)
[2018-10-01] MEDS: EPOETIN ALFA-EPBX (ESRD) 10,000 UNIT/ML VIAL SC (17:26)
[2018-10-01] MEDS: ATORVASTATIN 10 MG TAB PO (21:57)
[2018-10-02] MEDS: CIPROFLOXACIN 250 MG TAB GTB ×2 (05:40→18:31)
[2018-10-02] MEDS: METOCLOPRAMIDE 10 MG INJ IV ×3 (05:40→21:02)
[2018-10-02] MEDS: NITROGLYCERIN 2% 1 GM OINT PKT TD ×3 (05:41→21:03)
[2018-10-02] MEDS: Insulin NOVOLOG SS MODERATE Algorithm(NPO/TPN/ENTERAL FEEDS) SC ×4 (05:51→18:52)
[2018-10-02 06:35] LABS: ADD MAN DIFF? NO
[2018-10-02 06:42] LABS: WHITE BLOOD COUNT 6.9 10^3/ul (4.8-10.8)
[2018-10-02 06:42] LABS: BASOPHIL # 0.1 10^3/ul (0.0-0.1); EOSINOPHILS # 0.3 10^3/ul (0.0-0.5); EOSINOPHILS % 3.8 % (0.0-7.0); HEMATOCRIT 25.9 % (37.0-47.0); HEMOGLOBIN 8.3 g/dl (12.0-16.0); LYMPHOCYTES # 1.6 10^3/ul (0.8-2.9); LYMPHOCYTES % 22.7 % (15.0-51.0); MEAN CORPUSCULAR HEMOGLOBIN 28.8 pg (29.0-33.0); MEAN CORPUSCULAR VOLUME 89.9 fl (82.0-101.0); MEAN PLATELET VOLUME 11.5 fl (7.4-10.4); MONOCYTE # 0.9 10^3/ul (0.3-0.9); MONOCYTES % 12.6 % (0.0-11.0); NEUTROPHIL # 4.1 10^3/ul (1.6-7.5); NEUTROPHILS % 59.5 % (39.0-77.0); PLATELET COUNT 169 10^3/UL (140-415); RED BLOOD COUNT 2.88 10^6/ul (4.20-5.40)
[2018-10-02 07:23] LABS: ANION GAP 8 (5-13); BLOOD UREA NITROGEN 71 mg/dl (7-20); CARBON DIOXIDE 27 mmol/L (21-31); CHLORIDE 104 mmol/L (97-110); GLUCOSE 86 mg/dl (70-220); MAGNESIUM 2.3 mg/dl (1.7-2.5); POTASSIUM 4.3 mmol/L (3.5-5.1); SODIUM 139 mmol/L (135-144)
[2018-10-02 07:40] LABS: CALCIUM 8.1 mg/dl (8.4-10.2)
[2018-10-02] MEDS: METOPROLOL 25 MG TAB GTB ×2 (09:35→21:03)
[2018-10-02] MEDS: DONEPEZIL 5 MG TAB PO (09:35)
[2018-10-02] MEDS: PANTOPRAZOLE 40 MG INJ IV ×2 (09:35→21:03)
[2018-10-02] MEDS: DOCUSATE SODIUM 10 MG/ML (10ML CUP) GTB ×2 (09:36→21:01)
[2018-10-02] MEDS: POLYETHYLENE GLYCOL 17 GM PACKET GTB (09:36)
[2018-10-02] MEDS: INSULIN GLARGINE [LANTus] (100 UNITS/ML) SYG SC (10:37)
[2018-10-02] MEDS: ATORVASTATIN 10 MG TAB PO (21:03)
[2018-10-03] MEDS: METOCLOPRAMIDE 10 MG INJ IV ×3 (05:34→20:55)
[2018-10-03] MEDS: NITROGLYCERIN 2% 1 GM OINT PKT TD ×3 (05:37→20:55)
[2018-10-03] MEDS: Insulin NOVOLOG SS MODERATE Algorithm(NPO/TPN/ENTERAL FEEDS) SC ×4 (05:45→17:40)
[2018-10-03] MEDS: CIPROFLOXACIN 250 MG TAB GTB ×2 (06:02→17:36)
[2018-10-03 06:14] LABS: ADD MAN DIFF? NO
[2018-10-03 06:21] LABS: WHITE BLOOD COUNT 8.8 10^3/ul (4.8-10.8)
[2018-10-03 06:21] LABS: BASOPHIL # 0.1 10^3/ul (0.0-0.1); BASOPHILS % 0.6 % (0.0-2.0); EOSINOPHILS # 0.2 10^3/ul (0.0-0.5); HEMATOCRIT 26.6 % (37.0-47.0); HEMOGLOBIN 8.4 g/dl (12.0-16.0); LYMPHOCYTES # 1.4 10^3/ul (0.8-2.9); MEAN CORPUSCULAR HEMOGLOBIN 28.5 pg (29.0-33.0); MEAN CORPUSCULAR HGB CONC 31.6 g/dl (32.0-37.0); MEAN CORPUSCULAR VOLUME 90.2 fl (82.0-101.0); MEAN PLATELET VOLUME 11.5 fl (7.4-10.4); MONOCYTE # 0.9 10^3/ul (0.3-0.9); MONOCYTES % 10.7 % (0.0-11.0); NEUTROPHIL # 6.2 10^3/ul (1.6-7.5); NEUTROPHILS % 70.2 % (39.0-77.0); PLATELET COUNT 183 10^3/UL (140-415); RED BLOOD COUNT 2.95 10^6/ul (4.20-5.40); RED CELL DISTRIBUTION WIDTH 13.7 % (11.5-14.5)
[2018-10-03 06:55] LABS: MAGNESIUM 2.3 mg/dl (1.7-2.5)
[2018-10-03 06:58] LABS: ANION GAP 10 (5-13); BLOOD UREA NITROGEN 67 mg/dl (7-20); CALCIUM 7.9 mg/dl (8.4-10.2); CARBON DIOXIDE 26 mmol/L (21-31); CHLORIDE 104 mmol/L (97-110); CREATININE 2.43 mg/dl (0.44-1.00); GLUCOSE 112 mg/dl (70-220); POTASSIUM 4.3 mmol/L (3.5-5.1); SODIUM 140 mmol/L (135-144)
[2018-10-03] MEDS: INSULIN GLARGINE [LANTus] (100 UNITS/ML) SYG SC (08:00)
[2018-10-03] MEDS: METOPROLOL 25 MG TAB GTB ×2 (08:53→20:45)
[2018-10-03] MEDS: POLYETHYLENE GLYCOL 17 GM PACKET GTB (08:53)
[2018-10-03] MEDS: DONEPEZIL 5 MG TAB PO (08:53)
[2018-10-03] MEDS: DOCUSATE SODIUM 10 MG/ML (10ML CUP) GTB ×2 (08:53→20:44)
[2018-10-03] MEDS: PANTOPRAZOLE 40 MG INJ IV ×3 (09:00→20:44)
[2018-10-03] MEDS: ONDANSETRON 4 MG INJ IV (09:09)
[2018-10-03] MEDS: EPOETIN ALFA-EPBX (ESRD) 10,000 UNIT/ML VIAL SC (17:40)
[2018-10-03] MEDS: ATORVASTATIN 10 MG TAB PO (20:46)
[2018-10-04] MEDS: NITROGLYCERIN 2% 1 GM OINT PKT TD ×3 (05:19→21:03)
[2018-10-04] MEDS: METOCLOPRAMIDE 10 MG INJ IV ×3 (05:19→21:02)
[2018-10-04] MEDS: CIPROFLOXACIN 250 MG TAB GTB ×2 (05:19→17:41)
[2018-10-04] MEDS: Insulin NOVOLOG SS MODERATE Algorithm(NPO/TPN/ENTERAL FEEDS) SC ×4 (05:32→17:37)
[2018-10-04 05:38] LABS: ADD MAN DIFF? NO
[2018-10-04 05:41] LABS: WHITE BLOOD COUNT 7.6 10^3/ul (4.8-10.8)
[2018-10-04 05:41] LABS: BASOPHIL # 0.1 10^3/ul (0.0-0.1); BASOPHILS % 0.8 % (0.0-2.0); EOSINOPHILS # 0.3 10^3/ul (0.0-0.5); EOSINOPHILS % 3.6 % (0.0-7.0); HEMATOCRIT 26.5 % (37.0-47.0); HEMOGLOBIN 8.4 g/dl (12.0-16.0); LYMPHOCYTES # 1.5 10^3/ul (0.8-2.9); LYMPHOCYTES % 19.7 % (15.0-51.0); MEAN CORPUSCULAR HEMOGLOBIN 28.8 pg (29.0-33.0); MEAN CORPUSCULAR HGB CONC 31.7 g/dl (32.0-37.0); MEAN CORPUSCULAR VOLUME 90.8 fl (82.0-101.0); MEAN PLATELET VOLUME 11.3 fl (7.4-10.4); MONOCYTE # 0.7 10^3/ul (0.3-0.9); MONOCYTES % 9.2 % (0.0-11.0); NEUTROPHILS % 66.2 % (39.0-77.0); PLATELET COUNT 167 10^3/UL (140-415); RED BLOOD COUNT 2.92 10^6/ul (4.20-5.40); RED CELL DISTRIBUTION WIDTH 14.2 % (11.5-14.5)
[2018-10-04 05:54] LABS: POSITIVE DIFF @See below
[2018-10-04 06:10] LABS: ANION GAP 7 (5-13); BLOOD UREA NITROGEN 71 mg/dl (7-20); CARBON DIOXIDE 29 mmol/L (21-31); CHLORIDE 104 mmol/L (97-110); CREATININE 2.45 mg/dl (0.44-1.00); GLUCOSE 118 mg/dl (70-220); POTASSIUM 4.6 mmol/L (3.5-5.1); SODIUM 140 mmol/L (135-144)
[2018-10-04] MEDS: DOCUSATE SODIUM 10 MG/ML (10ML CUP) GTB ×2 (08:20→21:01)
[2018-10-04] MEDS: PANTOPRAZOLE 40 MG INJ IV ×2 (08:20→21:01)
[2018-10-04] MEDS: DONEPEZIL 5 MG TAB PO (08:20)
[2018-10-04] MEDS: POLYETHYLENE GLYCOL 17 GM PACKET GTB (08:21)
[2018-10-04] MEDS: METOPROLOL 25 MG TAB GTB ×2 (08:21→21:03)
[2018-10-04] MEDS: INSULIN GLARGINE [LANTus] (100 UNITS/ML) SYG SC (08:31)
[2018-10-04] MEDS: ATORVASTATIN 10 MG TAB PO (21:02)
[2018-10-05] MEDS: Insulin NOVOLOG SS MODERATE Algorithm(NPO/TPN/ENTERAL FEEDS) SC ×5 (05:35→18:00)
[2018-10-05] MEDS: CIPROFLOXACIN 250 MG TAB GTB (05:36)
[2018-10-05] MEDS: METOCLOPRAMIDE 10 MG INJ IV (05:36)
[2018-10-05] MEDS: NITROGLYCERIN 2% 1 GM OINT PKT TD ×3 (05:37→21:48)
[2018-10-05 06:04] LABS: ADD MAN DIFF? NO
[2018-10-05 06:07] LABS: WHITE BLOOD COUNT 7.8 10^3/ul (4.8-10.8)
[2018-10-05 06:07] LABS: BASOPHIL # 0.1 10^3/ul (0.0-0.1); BASOPHILS % 0.9 % (0.0-2.0); EOSINOPHILS # 0.4 10^3/ul (0.0-0.5); EOSINOPHILS % 4.6 % (0.0-7.0); HEMOGLOBIN 8.1 g/dl (12.0-16.0); LYMPHOCYTES # 1.4 10^3/ul (0.8-2.9); LYMPHOCYTES % 17.9 % (15.0-51.0); MEAN CORPUSCULAR HEMOGLOBIN 27.9 pg (29.0-33.0); MEAN CORPUSCULAR HGB CONC 31.2 g/dl (32.0-37.0); MEAN CORPUSCULAR VOLUME 89.7 fl (82.0-101.0); MEAN PLATELET VOLUME 11.1 fl (7.4-10.4); MONOCYTE # 0.7 10^3/ul (0.3-0.9); MONOCYTES % 8.6 % (0.0-11.0); NEUTROPHIL # 5.2 10^3/ul (1.6-7.5); NEUTROPHILS % 67.4 % (39.0-77.0); NUCLEATED RED BLOOD CELLS% 0.3 /100WBC (0.0-0.0); PLATELET COUNT 215 10^3/UL (140-415)
[2018-10-05 06:37] LABS: ANION GAP 4 (5-13); BLOOD UREA NITROGEN 69 mg/dl (7-20); CALCIUM 7.8 mg/dl (8.4-10.2); CARBON DIOXIDE 31 mmol/L (21-31); CHLORIDE 104 mmol/L (97-110); CREATININE 2.27 mg/dl (0.44-1.00); GLUCOSE 120 mg/dl (70-220); POTASSIUM 4.2 mmol/L (3.5-5.1); SODIUM 139 mmol/L (135-144)
[2018-10-05] MEDS: INSULIN GLARGINE [LANTus] (100 UNITS/ML) SYG SC (07:50)
[2018-10-05] MEDS: DOCUSATE SODIUM 10 MG/ML (10ML CUP) GTB ×2 (08:57→21:48)
[2018-10-05] MEDS: POLYETHYLENE GLYCOL 17 GM PACKET GTB (08:57)
[2018-10-05] MEDS: DONEPEZIL 5 MG TAB PO (08:57)
[2018-10-05] MEDS: METOPROLOL 25 MG TAB GTB ×2 (08:58→21:48)
[2018-10-05] MEDS: LORAZEPAM 0.5 MG TAB PO (17:13)
[2018-10-05] MEDS: EPOETIN ALFA-EPBX (ESRD) 10,000 UNIT/ML VIAL SC (17:55)
[2018-10-05] MEDS: LORAZEPAM 1 MG TAB GTB (18:11)
[2018-10-05] MEDS: ATORVASTATIN 10 MG TAB PO (21:48)
[2018-10-06] MEDS: Insulin NOVOLOG SS MODERATE Algorithm(NPO/TPN/ENTERAL FEEDS) SC ×3 (05:31→11:52)
[2018-10-06] MEDS: NITROGLYCERIN 2% 1 GM OINT PKT TD (05:31)
[2018-10-06] MEDS: POLYETHYLENE GLYCOL 17 GM PACKET GTB (08:57)
[2018-10-06] MEDS: METOPROLOL 25 MG TAB GTB (08:57)
[2018-10-06] MEDS: DONEPEZIL 5 MG TAB PO (08:57)
[2018-10-06] MEDS: DOCUSATE SODIUM 10 MG/ML (10ML CUP) GTB (08:57)
[2018-10-06] MEDS: INSULIN GLARGINE [LANTus] (100 UNITS/ML) SYG SC (09:05)
== END 2018-10-06 12:34 | DRG 368 ==
LOC: ICU 18:19 → 6WM 09-26 18:06 → E/R 12:14 → 6WM 09-26 18:07 → ICU 14:38
PROVIDERS: Internal Medicine
PROC: 0DH63UZ Insertion of Feeding Device into Stomach, Percutaneous Approach (ICD-10-PCS; principal; 2018-09-25 11:00)
PROC: 0DB68ZX Excision of Stomach, Via Natural or Artificial Opening Endoscopic, Diagnostic (ICD-10-PCS; 2018-09-25 11:00)
PROC: 30233N1 Transfusion of Nonautologous Red Blood Cells into Peripheral Vein, Percutaneous Approach (ICD-10-PCS; 2018-09-25 11:00)
DX: K22.6 Gastro-esophageal laceration-hemorrhage syndrome (principal); I21.A1 Myocardial infarction type 2; I50.31 Acute diastolic (congestive) heart failure; I69.054 Hemiplegia and hemiparesis following nontraumatic subarachnoid hemorrhage affecting left non-dominant side; D62 Acute posthemorrhagic anemia; N17.9 Acute kidney failure, unspecified; I13.0 Hypertensive heart and chronic kidney disease with heart failure and stage 1 through stage 4 chronic kidney disease, or unspecified chronic kidney disease; R64 Cachexia; E87.0 Hyperosmolality and hypernatremia; N39.0 Urinary tract infection, site not specified; E44.0 Moderate protein-calorie malnutrition; I69.919 Unspecified symptoms and signs involving cognitive functions following unspecified cerebrovascular disease; F01.50 Vascular dementia, unspecified severity, without behavioral disturbance, psychotic disturbance, mood disturbance, and anxiety; E78.5 Hyperlipidemia, unspecified; E11.22 Type 2 diabetes mellitus with diabetic chronic kidney disease; E11.21 Type 2 diabetes mellitus with diabetic nephropathy; E87.70 Fluid overload, unspecified; E11.43 Type 2 diabetes mellitus with diabetic autonomic (poly)neuropathy; E11.39 Type 2 diabetes mellitus with other diabetic ophthalmic complication; H54.7 Unspecified visual loss; I35.1 Nonrheumatic aortic (valve) insufficiency; I27.20 Pulmonary hypertension, unspecified; I34.0 Nonrheumatic mitral (valve) insufficiency; I25.10 Atherosclerotic heart disease of native coronary artery without angina pectoris; I69.098 Other sequelae following nontraumatic subarachnoid hemorrhage; K29.01 Acute gastritis with bleeding; K31.84 Gastroparesis; M24.50 Contracture, unspecified joint; M25.562 Pain in left knee; N18.9 Chronic kidney disease, unspecified; R32 Unspecified urinary incontinence; R13.19 Other dysphagia; R62.7 Adult failure to thrive; Z66 Do not resuscitate; I25.2 Old myocardial infarction; Z87.440 Personal history of urinary (tract) infections; Z68.36 Body mass index [BMI] 36.0-36.9, adult; Z88.0 Allergy status to penicillin; Z79.84 Long term (current) use of oral hypoglycemic drugs
CPT/HCPCS: 36430; 71045; 74018; 76775; 80048; 80053; 80061; 80076; 81001; 81003; 82270; 82570; 82728; 82962; 83036; 83540; 83690; 83735; 83880; 83970; 84100; 84155; 84300; 84443; 84484; 85014; 85018; 85025; 85610; 85730; 86850; 86900; 86901; 86920; 87081; 87086; 88305; 92526; 92610; 93005; 93306; 96374; 96375; 99285-25

== ENCOUNTER 2018-10-24 17:36 | Inpatient (IN) | payer MEDICARE, OTHER, MEDICAID ==
[2018-10-24 18:06] LABS: ADD MAN DIFF? NO
[2018-10-24 18:08] LABS: BASOPHIL # 0.1 10^3/ul (0.0-0.1); BASOPHILS % 0.5 % (0.0-2.0); EOSINOPHILS % 0.3 % (0.0-7.0); HEMATOCRIT 28.2 % (37.0-47.0); HEMOGLOBIN 8.2 g/dl (12.0-16.0); LYMPHOCYTES # 1.4 10^3/ul (0.8-2.9); LYMPHOCYTES % 10.3 % (15.0-51.0); MEAN CORPUSCULAR HEMOGLOBIN 27.3 pg (29.0-33.0); MEAN CORPUSCULAR HGB CONC 29.1 g/dl (32.0-37.0); MEAN PLATELET VOLUME 12.5 fl (7.4-10.4); MONOCYTE # 0.5 10^3/ul (0.3-0.9); MONOCYTES % 3.6 % (0.0-11.0); NEUTROPHIL # 11.6 10^3/ul (1.6-7.5); NEUTROPHILS % 82.8 % (39.0-77.0); NUCLEATED RED BLOOD CELLS # 0.2 10^3/ul (0.0-0.0); NUCLEATED RED BLOOD CELLS% 1.5 /100WBC (0.0-0.0); PLATELET COUNT 270 10^3/UL (140-415)
[2018-10-24 18:25] LABS: ALANINE AMINOTRANSFERASE 25 IU/L (13-69); ALBUMIN 3.4 g/dl (3.3-4.9); ALKALINE PHOSPHATASE 154 IU/L (42-121); ANION GAP 13 (5-13); ASPARTATE AMINO TRANSFERASE 29 IU/L (15-46); BILIRUBIN,INDIRECT 0.4 mg/dl (0-1.1); BILIRUBIN,TOTAL 0.4 mg/dl (0.2-1.3); BLOOD UREA NITROGEN 108 mg/dl (7-20); CALCIUM 8.7 mg/dl (8.4-10.2); CARBON DIOXIDE 22 mmol/L (21-31); CHLORIDE 129 mmol/L (97-110); GLUCOSE 233 mg/dl (70-220); POTASSIUM 3.8 mmol/L (3.5-5.1); TOTAL PROTEIN 6.8 g/dl (6.1-8.1)
[2018-10-24 18:27] LABS: PROTIME 15.3 Sec (11.9-14.9); PT RATIO 1.2
[2018-10-24 18:28] LABS: PARTIAL THROMBOPLASTIN TIME 26.5 Sec (23.0-35.0); SODIUM 164 mmol/L (135-144)
[2018-10-24 18:46] LABS: ADD UMIC YES; UR ASCORBIC ACID 40 mg/dL (NEGATIVE); UR BILIRUBIN (Dip) NEGATIVE (NEGATIVE); UR BLOOD (Dip) NEGATIVE (NEGATIVE); UR CLARITY CLEAR (CLEAR); UR COLOR YELLOW (YELLOW); UR GLUCOSE (Dip) 1+ mg/dL (NEGATIVE); UR KETONES (Dip) NEGATIVE (NEGATIVE); UR LEUKOCYTE ESTERASE (Dip) NEGATIVE Leu/ul (NEGATIVE); UR NITRITE (Dip) NEGATIVE (NEGATIVE); UR RBC 0 /HPF (0-5); UR SPECIFIC GRAVITY (Dip) 1.018 (1.003-1.030); UR TOTAL PROTEIN (Dip) 2+ mg/dl (NEGATIVE); UR UROBILINOGEN (Dip) NEGATIVE (NEGATIVE); UR WBC 1 /HPF (0-5)
[2018-10-24 18:48] LABS: TROPONIN-I 0.125 ng/ml (0.000-0.120)
[2018-10-24 20:29] LABS: LACTIC ACID 2.3 mmol/L (0.5-2.0)
[2018-10-24] MEDS: MEROPENEM 500MG/50 ML (PMX) 50 ML IVPB (20:30)
[2018-10-24] MEDS: ASPIRIN 81 MG TAB GTB (20:32)
[2018-10-24] MEDS: SOD CHLORIDE 0.9% 250 ML IV (20:32)
[2018-10-24] MEDS: SOD CHLORIDE 0.9% 500 ML IV (20:38)
[2018-10-24] MEDS: VANCOMYCIN 1 GM (PMX) 250 ML IVPB (21:04)
[2018-10-24 23:07] LABS: LACTIC ACID 2.2 mmol/L (0.5-2.0)
[2018-10-25] MEDS: SOD CHLORIDE 0.45% 1,000 ML IV (16:18)
[2018-10-25] MEDS ORDERED: VANCOMYCIN IV PER PHARMACY XX (17:00)
[2018-10-25] MEDS: MEROPENEM 500MG/50 ML (PMX) 50 ML IVPB (18:23)
[2018-10-25] MEDS ORDERED: GLUCOSE GEL 15 GRAM TUBE PO ×2 (21:00)
[2018-10-25] MEDS ORDERED: DEXTROSE 50% 50 ML SYRINGE IV (21:00)
[2018-10-25] MEDS ORDERED: GLUCAGON 1 MG INJ IM (21:00)
[2018-10-25] MEDS ORDERED: GLUCOSE GEL 15 GRAM TUBE BUCCAL (21:00)
[2018-10-25] MEDS: INSULIN ASPART [NOVOLOG] 3 ML PEN SC (21:00)
[2018-10-26] MEDS: INSULIN ASPART [NOVOLOG] 3 ML PEN SC ×6 (00:44→20:43)
[2018-10-26] MEDS: SOD CHLORIDE 0.45% 1,000 ML IV ×2 (00:52→11:46)
[2018-10-26 05:31] LABS: ADD MAN DIFF? NO
[2018-10-26 05:38] LABS: BASOPHIL # 0.1 10^3/ul (0.0-0.1); BASOPHILS % 0.5 % (0.0-2.0); EOSINOPHILS # 0.2 10^3/ul (0.0-0.5); EOSINOPHILS % 1.6 % (0.0-7.0); HEMATOCRIT 26.5 % (37.0-47.0); HEMOGLOBIN 7.7 g/dl (12.0-16.0); LYMPHOCYTES # 1.2 10^3/ul (0.8-2.9); LYMPHOCYTES % 10.5 % (15.0-51.0); MEAN CORPUSCULAR HEMOGLOBIN 26.7 pg (29.0-33.0); MEAN CORPUSCULAR HGB CONC 29.1 g/dl (32.0-37.0); MEAN PLATELET VOLUME 12.7 fl (7.4-10.4); MONOCYTE # 0.4 10^3/ul (0.3-0.9); MONOCYTES % 3.9 % (0.0-11.0); NEUTROPHIL # 9.1 10^3/ul (1.6-7.5); NEUTROPHILS % 81.6 % (39.0-77.0); NUCLEATED RED BLOOD CELLS # 0.2 10^3/ul (0.0-0.0); NUCLEATED RED BLOOD CELLS% 1.7 /100WBC (0.0-0.0); PLATELET COUNT 253 10^3/UL (140-415); RED BLOOD COUNT 2.88 10^6/ul (4.20-5.40); RED CELL DISTRIBUTION WIDTH 16.2 % (11.5-14.5)
[2018-10-26 05:38] LABS: WHITE BLOOD COUNT 11.1 10^3/ul (4.8-10.8)
[2018-10-26 05:54] LABS: LACTIC ACID 1.7 mmol/L (0.5-2.0)
[2018-10-26 05:58] LABS: VANCOMYCIN,RANDOM 10.4 ug/ml
[2018-10-26 06:00] LABS: ANION GAP 8 (5-13); BLOOD UREA NITROGEN 103 mg/dl (7-20); CALCIUM 8.5 mg/dl (8.4-10.2); CARBON DIOXIDE 24 mmol/L (21-31); CHLORIDE 131 mmol/L (97-110); CREATININE 2.22 mg/dl (0.44-1.00); GLUCOSE 186 mg/dl (70-220); POTASSIUM 3.6 mmol/L (3.5-5.1)
[2018-10-26 06:06] LABS: SODIUM 163 mmol/L (135-144)
[2018-10-26 06:10] LABS: TROPONIN-I 0.082 ng/ml (0.000-0.120)
[2018-10-26 06:52] LABS: B-TYPE NATRIURETIC PEPTIDE 65500 PG/ML (0-450)
[2018-10-26 07:26] LABS: PROCALCITONIN 0.15 ng/mL (0.00-0.10)
[2018-10-26] MEDS: BALSAM PERU/CASTOR OIL 60 GM TUBE TOP ×2 (08:49→20:25)
[2018-10-26] MEDS: MEROPENEM 500MG/50 ML (PMX) 50 ML IVPB ×2 (08:52→20:17)
[2018-10-26] MEDS: VANCOMYCIN 750 MG (PMX) 250 ML IVPB (13:15)
[2018-10-27] MEDS: INSULIN ASPART [NOVOLOG] 3 ML PEN SC ×6 (01:40→21:48)
[2018-10-27 05:56] LABS: ADD MAN DIFF? NO
[2018-10-27 06:08] LABS: ABNORMAL IP MESSAGE 1; BASOPHIL # 0.1 10^3/ul (0.0-0.1); BASOPHILS % 0.6 % (0.0-2.0); EOSINOPHILS # 0.3 10^3/ul (0.0-0.5); EOSINOPHILS % 2.6 % (0.0-7.0); HEMATOCRIT 23.8 % (37.0-47.0); LYMPHOCYTES # 1.8 10^3/ul (0.8-2.9); LYMPHOCYTES % 18.8 % (15.0-51.0); MEAN CORPUSCULAR HEMOGLOBIN 26.8 pg (29.0-33.0); MEAN CORPUSCULAR HGB CONC 29.4 g/dl (32.0-37.0); MEAN CORPUSCULAR VOLUME 91.2 fl (82.0-101.0); MEAN PLATELET VOLUME 13.3 fl (7.4-10.4); MONOCYTE # 0.5 10^3/ul (0.3-0.9); MONOCYTES % 4.8 % (0.0-11.0); NUCLEATED RED BLOOD CELLS # 0.2 10^3/ul (0.0-0.0); NUCLEATED RED BLOOD CELLS% 2.3 /100WBC (0.0-0.0); PLATELET COUNT 239 10^3/UL (140-415); RED BLOOD COUNT 2.61 10^6/ul (4.20-5.40); RED CELL DISTRIBUTION WIDTH 16.5 % (11.5-14.5)
[2018-10-27 06:08] LABS: WHITE BLOOD COUNT 9.8 10^3/ul (4.8-10.8)
[2018-10-27 06:21] LABS: POSITIVE DIFF @See below
[2018-10-27 06:28] LABS: ALANINE AMINOTRANSFERASE 25 IU/L (13-69); ALBUMIN 2.7 g/dl (3.3-4.9); ALBUMIN/GLOBULIN RATIO 0.87; ALKALINE PHOSPHATASE 130 IU/L (42-121); ANION GAP 8 (5-13); ASPARTATE AMINO TRANSFERASE 33 IU/L (15-46); BILIRUBIN,INDIRECT 0.4 mg/dl (0-1.1); BILIRUBIN,TOTAL 0.4 mg/dl (0.2-1.3); BLOOD UREA NITROGEN 99 mg/dl (7-20); CALCIUM 8.2 mg/dl (8.4-10.2); CARBON DIOXIDE 22 mmol/L (21-31); CHLORIDE 129 mmol/L (97-110); CREATININE 2.03 mg/dl (0.44-1.00); GLUCOSE 185 mg/dl (70-220); POTASSIUM 3.9 mmol/L (3.5-5.1); SODIUM 159 mmol/L (135-144); TOTAL PROTEIN 5.8 g/dl (6.1-8.1)
[2018-10-27 07:46] LABS: PROCALCITONIN 0.13 ng/mL (0.00-0.10)
[2018-10-27] MEDS: SOD CHLORIDE 0.45% 1,000 ML IV (08:30)
[2018-10-27] MEDS: MEROPENEM 500MG/50 ML (PMX) 50 ML IVPB (08:30)
[2018-10-27 11:38] LABS: IMMEDIATE SPIN CROSSMATCH 1 1
[2018-10-27] MEDS: BALSAM PERU/CASTOR OIL 60 GM TUBE TOP ×2 (12:56→20:01)
[2018-10-28] MEDS: INSULIN ASPART [NOVOLOG] 3 ML PEN SC ×5 (01:35→18:13)
[2018-10-28 05:29] LABS: ADD MAN DIFF? NO
[2018-10-28 05:39] LABS: ABNORMAL IP MESSAGE 1; BASOPHIL # 0.1 10^3/ul (0.0-0.1); BASOPHILS % 0.8 % (0.0-2.0); EOSINOPHILS # 0.2 10^3/ul (0.0-0.5); EOSINOPHILS % 1.5 % (0.0-7.0); HEMATOCRIT 30.8 % (37.0-47.0); HEMOGLOBIN 9.2 g/dl (12.0-16.0); LYMPHOCYTES # 2.1 10^3/ul (0.8-2.9); LYMPHOCYTES % 18.4 % (15.0-51.0); MEAN CORPUSCULAR HEMOGLOBIN 27.1 pg (29.0-33.0); MEAN CORPUSCULAR HGB CONC 29.9 g/dl (32.0-37.0); MEAN CORPUSCULAR VOLUME 90.9 fl (82.0-101.0); MEAN PLATELET VOLUME 13.2 fl (7.4-10.4); MONOCYTE # 0.6 10^3/ul (0.3-0.9); NEUTROPHIL # 8.1 10^3/ul (1.6-7.5); NEUTROPHILS % 71.2 % (39.0-77.0); NUCLEATED RED BLOOD CELLS # 0.4 10^3/ul (0.0-0.0); NUCLEATED RED BLOOD CELLS% 3.2 /100WBC (0.0-0.0); PLATELET COUNT 235 10^3/UL (140-415); RED BLOOD COUNT 3.39 10^6/ul (4.20-5.40); RED CELL DISTRIBUTION WIDTH 17.2 % (11.5-14.5)
[2018-10-28 05:39] LABS: WHITE BLOOD COUNT 11.4 10^3/ul (4.8-10.8)
[2018-10-28 05:42] LABS: POSITIVE DIFF @See below
[2018-10-28 06:15] LABS: ANION GAP 9 (5-13); BLOOD UREA NITROGEN 99 mg/dl (7-20); CARBON DIOXIDE 21 mmol/L (21-31); CHLORIDE 128 mmol/L (97-110); CREATININE 1.94 mg/dl (0.44-1.00); GLUCOSE 239 mg/dl (70-220); MAGNESIUM 2.8 mg/dl (1.7-2.5); POTASSIUM 4.5 mmol/L (3.5-5.1); SODIUM 158 mmol/L (135-144)
[2018-10-28] MEDS: BALSAM PERU/CASTOR OIL 60 GM TUBE TOP ×2 (09:43→21:05)
[2018-10-28] MEDS: SOD CHLORIDE 0.45% 1,000 ML IV (09:45)
[2018-10-29] MEDS: hydrALAzine 20 MG INJ IV ×3 (00:14→09:16)
[2018-10-29] MEDS: FUROSEMIDE 40 MG INJ IV (00:14)
[2018-10-29] MEDS: traZODone 50 MG TAB GTB (00:14)
[2018-10-29] MEDS: ONDANSETRON 4 MG INJ IV ×2 (00:14→05:05)
[2018-10-29] MEDS: ALBUTEROL/IPRATROPIUM (NEB) 3 ML AMP HHN ×5 (00:16→21:20)
[2018-10-29] MEDS: INSULIN ASPART [NOVOLOG] 3 ML PEN SC ×4 (05:27→17:27)
[2018-10-29 05:53] LABS: ADD MAN DIFF? NO
[2018-10-29 06:17] LABS: ABNORMAL IP MESSAGE 1; BASOPHIL # 0.1 10^3/ul (0.0-0.1); BASOPHILS % 0.7 % (0.0-2.0); EOSINOPHILS # 0.1 10^3/ul (0.0-0.5); EOSINOPHILS % 0.5 % (0.0-7.0); HEMATOCRIT 29.2 % (37.0-47.0); HEMOGLOBIN 8.9 g/dl (12.0-16.0); LYMPHOCYTES # 1.3 10^3/ul (0.8-2.9); LYMPHOCYTES % 10.5 % (15.0-51.0); MEAN CORPUSCULAR HEMOGLOBIN 27.6 pg (29.0-33.0); MEAN CORPUSCULAR HGB CONC 30.5 g/dl (32.0-37.0); MEAN CORPUSCULAR VOLUME 90.7 fl (82.0-101.0); MEAN PLATELET VOLUME 13.5 fl (7.4-10.4); MONOCYTE # 0.6 10^3/ul (0.3-0.9); MONOCYTES % 5.3 % (0.0-11.0); NEUTROPHIL # 9.5 10^3/ul (1.6-7.5); NEUTROPHILS % 78.8 % (39.0-77.0); NUCLEATED RED BLOOD CELLS # 0.5 10^3/ul (0.0-0.0); NUCLEATED RED BLOOD CELLS% 4.1 /100WBC (0.0-0.0); PLATELET COUNT 218 10^3/UL (140-415); RED BLOOD COUNT 3.22 10^6/ul (4.20-5.40); RED CELL DISTRIBUTION WIDTH 17.2 % (11.5-14.5)
[2018-10-29 06:17] LABS: WHITE BLOOD COUNT 12.1 10^3/ul (4.8-10.8)
[2018-10-29 06:37] LABS: POSITIVE DIFF @See below
[2018-10-29 06:54] LABS: ANION GAP 10 (5-13); BLOOD UREA NITROGEN 99 mg/dl (7-20); CALCIUM 8.3 mg/dl (8.4-10.2); CARBON DIOXIDE 23 mmol/L (21-31); CHLORIDE 126 mmol/L (97-110); CREATININE 2.04 mg/dl (0.44-1.00); GLUCOSE 179 mg/dl (70-220); POTASSIUM 4.1 mmol/L (3.5-5.1); SODIUM 159 mmol/L (135-144)
[2018-10-29] MEDS ORDERED: VANCOMYCIN IV PER PHARMACY XX (07:00)
[2018-10-29 07:22] LABS: PROCALCITONIN 0.17 ng/mL (0.00-0.10)
[2018-10-29] MEDS: VANCOMYCIN 1 GM (PMX) 250 ML IVPB (09:08)
[2018-10-29] MEDS: BALSAM PERU/CASTOR OIL 60 GM TUBE TOP ×2 (09:10→20:37)
[2018-10-29] MEDS: CEFEPIME 1GM/50 ML (PMX) 50 ML IVPB (11:19)
[2018-10-30] MEDS: ALBUTEROL/IPRATROPIUM (NEB) 3 ML AMP HHN ×5 (01:27→20:30)
[2018-10-30] MEDS: INSULIN ASPART [NOVOLOG] 3 ML PEN SC ×4 (01:34→17:16)
[2018-10-30 06:11] LABS: ADD MAN DIFF? NO
[2018-10-30 06:23] LABS: ABNORMAL IP MESSAGE 1; BASOPHIL # 0.1 10^3/ul (0.0-0.1); BASOPHILS % 0.8 % (0.0-2.0); EOSINOPHILS # 0.1 10^3/ul (0.0-0.5); EOSINOPHILS % 1.4 % (0.0-7.0); HEMATOCRIT 29.3 % (37.0-47.0); HEMOGLOBIN 8.6 g/dl (12.0-16.0); LYMPHOCYTES # 1.2 10^3/ul (0.8-2.9); LYMPHOCYTES % 12.5 % (15.0-51.0); MEAN CORPUSCULAR HEMOGLOBIN 27.2 pg (29.0-33.0); MEAN CORPUSCULAR HGB CONC 29.4 g/dl (32.0-37.0); MEAN CORPUSCULAR VOLUME 92.7 fl (82.0-101.0); MEAN PLATELET VOLUME 13.5 fl (7.4-10.4); MONOCYTE # 0.6 10^3/ul (0.3-0.9); MONOCYTES % 6.2 % (0.0-11.0); NEUTROPHIL # 7.3 10^3/ul (1.6-7.5); NEUTROPHILS % 75.8 % (39.0-77.0); NUCLEATED RED BLOOD CELLS # 0.3 10^3/ul (0.0-0.0); NUCLEATED RED BLOOD CELLS% 3.4 /100WBC (0.0-0.0); PLATELET COUNT 197 10^3/UL (140-415); RED BLOOD COUNT 3.16 10^6/ul (4.20-5.40); RED CELL DISTRIBUTION WIDTH 18.2 % (11.5-14.5)
[2018-10-30 06:23] LABS: WHITE BLOOD COUNT 9.6 10^3/ul (4.8-10.8)
[2018-10-30 06:28] LABS: POSITIVE DIFF @See below
[2018-10-30 07:04] LABS: ANION GAP 8 (5-13); BLOOD UREA NITROGEN 99 mg/dl (7-20); CALCIUM 8.3 mg/dl (8.4-10.2); CARBON DIOXIDE 24 mmol/L (21-31); CHLORIDE 125 mmol/L (97-110); CREATININE 2.28 mg/dl (0.44-1.00); GLUCOSE 188 mg/dl (70-220); SODIUM 157 mmol/L (135-144)
[2018-10-30 07:06] LABS: POTASSIUM 4.3 mmol/L (3.5-5.1)
[2018-10-30] MEDS: CEFEPIME 1GM/50 ML (PMX) 50 ML IVPB (09:32)
[2018-10-30] MEDS: BALSAM PERU/CASTOR OIL 60 GM TUBE TOP ×2 (09:36→21:30)
[2018-10-30 10:28] LABS: PROCALCITONIN 0.16 ng/mL (0.00-0.10)
[2018-10-30] MEDS: ASCORBIC ACID 500 MG TAB GTB (15:25)
[2018-10-30] MEDS: MULTIVITAMINS THERAPEUTIC TAB GTB (15:27)
[2018-10-31] MEDS: INSULIN ASPART [NOVOLOG] 3 ML PEN SC ×5 (00:28→23:17)
[2018-10-31] MEDS: hydrALAzine 20 MG INJ IV ×3 (04:41→19:55)
[2018-10-31] MEDS ORDERED: VANCOMYCIN 750 MG (PMX) 250 ML IVPB (08:00)
[2018-10-31] MEDS: MULTIVITAMINS THERAPEUTIC TAB GTB (08:46)
[2018-10-31] MEDS: ASCORBIC ACID 500 MG TAB GTB (08:46)
[2018-10-31] MEDS: ALBUTEROL/IPRATROPIUM (NEB) 3 ML AMP HHN ×4 (09:00→21:25)
[2018-10-31] MEDS: BALSAM PERU/CASTOR OIL 60 GM TUBE TOP ×2 (09:15→20:16)
[2018-10-31] MEDS: METOCLOPRAMIDE 10 MG INJ IV ×2 (18:01→23:14)
[2018-11-01] MEDS: hydrALAzine 20 MG INJ IV ×2 (00:48→08:43)
[2018-11-01 06:02] LABS: ADD MAN DIFF? NO
[2018-11-01 06:06] LABS: ABNORMAL IP MESSAGE 1; BASOPHIL # 0.1 10^3/ul (0.0-0.1); EOSINOPHILS # 0.2 10^3/ul (0.0-0.5); EOSINOPHILS % 2.1 % (0.0-7.0); HEMATOCRIT 29.4 % (37.0-47.0); HEMOGLOBIN 8.5 g/dl (12.0-16.0); LYMPHOCYTES # 1.1 10^3/ul (0.8-2.9); LYMPHOCYTES % 13.2 % (15.0-51.0); MEAN CORPUSCULAR HEMOGLOBIN 27.8 pg (29.0-33.0); MEAN CORPUSCULAR HGB CONC 28.9 g/dl (32.0-37.0); MEAN CORPUSCULAR VOLUME 96.1 fl (82.0-101.0); MEAN PLATELET VOLUME 13.2 fl (7.4-10.4); MONOCYTE # 0.6 10^3/ul (0.3-0.9); NEUTROPHIL # 5.9 10^3/ul (1.6-7.5); NEUTROPHILS % 73.8 % (39.0-77.0); NUCLEATED RED BLOOD CELLS # 0.2 10^3/ul (0.0-0.0); PLATELET COUNT 156 10^3/UL (140-415); RED BLOOD COUNT 3.06 10^6/ul (4.20-5.40); RED CELL DISTRIBUTION WIDTH 19.8 % (11.5-14.5)
[2018-11-01] MEDS: METOCLOPRAMIDE 10 MG INJ IV ×4 (06:06→22:29)
[2018-11-01] MEDS: LANSOPRAZOLE 30 MG CAP GTB (06:06)
[2018-11-01 06:15] LABS: POSITIVE DIFF @See below
[2018-11-01] MEDS: INSULIN ASPART [NOVOLOG] 3 ML PEN SC ×4 (06:21→20:38)
[2018-11-01 06:37] LABS: ANION GAP 11 (5-13); BLOOD UREA NITROGEN 94 mg/dl (7-20); CALCIUM 8.2 mg/dl (8.4-10.2); CARBON DIOXIDE 25 mmol/L (21-31); CHLORIDE 123 mmol/L (97-110); CREATININE 2.18 mg/dl (0.44-1.00); GLUCOSE 216 mg/dl (70-220); POTASSIUM 4.4 mmol/L (3.5-5.1); SODIUM 159 mmol/L (135-144)
[2018-11-01] MEDS: MULTIVITAMINS THERAPEUTIC TAB GTB (08:43)
[2018-11-01] MEDS: ASCORBIC ACID 500 MG TAB GTB (08:43)
[2018-11-01] MEDS: BALSAM PERU/CASTOR OIL 60 GM TUBE TOP ×2 (08:44→20:36)
[2018-11-01] MEDS: ALBUTEROL/IPRATROPIUM (NEB) 3 ML AMP HHN ×4 (09:19→20:50)
[2018-11-01] MEDS: INSULIN GLARGINE [LANTus] (100 UNITS/ML) SYG SC (20:42)
[2018-11-02] MEDS: ACCU-CHEK XX (01:37)
[2018-11-02] MEDS: LANSOPRAZOLE 30 MG CAP GTB (05:16)
[2018-11-02] MEDS: METOCLOPRAMIDE 10 MG INJ IV ×4 (05:16→22:55)
[2018-11-02 06:20] LABS: ADD MAN DIFF? NO
[2018-11-02 06:24] LABS: WHITE BLOOD COUNT 8.7 10^3/ul (4.8-10.8)
[2018-11-02 06:24] LABS: ABNORMAL IP MESSAGE 1; BASOPHIL # 0.1 10^3/ul (0.0-0.1); BASOPHILS % 0.8 % (0.0-2.0); EOSINOPHILS # 0.2 10^3/ul (0.0-0.5); EOSINOPHILS % 2.2 % (0.0-7.0); HEMATOCRIT 30.2 % (37.0-47.0); HEMOGLOBIN 8.7 g/dl (12.0-16.0); LYMPHOCYTES # 1.3 10^3/ul (0.8-2.9); LYMPHOCYTES % 15.2 % (15.0-51.0); MEAN CORPUSCULAR HEMOGLOBIN 27.2 pg (29.0-33.0); MEAN CORPUSCULAR HGB CONC 28.8 g/dl (32.0-37.0); MEAN CORPUSCULAR VOLUME 94.4 fl (82.0-101.0); MEAN PLATELET VOLUME 12.8 fl (7.4-10.4); MONOCYTE # 0.6 10^3/ul (0.3-0.9); MONOCYTES % 7.4 % (0.0-11.0); NEUTROPHIL # 6.3 10^3/ul (1.6-7.5); NEUTROPHILS % 72.8 % (39.0-77.0); NUCLEATED RED BLOOD CELLS # 0.1 10^3/ul (0.0-0.0); NUCLEATED RED BLOOD CELLS% 1.2 /100WBC (0.0-0.0); PLATELET COUNT 155 10^3/UL (140-415); RED CELL DISTRIBUTION WIDTH 20.3 % (11.5-14.5)
[2018-11-02 06:45] LABS: POSITIVE DIFF @See below
[2018-11-02 06:46] LABS: ANION GAP 8 (5-13); BLOOD UREA NITROGEN 96 mg/dl (7-20); CALCIUM 8.1 mg/dl (8.4-10.2); CARBON DIOXIDE 26 mmol/L (21-31); CHLORIDE 123 mmol/L (97-110); CREATININE 2.21 mg/dl (0.44-1.00); GLUCOSE 174 mg/dl (70-220); POTASSIUM 4.8 mmol/L (3.5-5.1); SODIUM 157 mmol/L (135-144)
[2018-11-02] MEDS: ALBUTEROL/IPRATROPIUM (NEB) 3 ML AMP HHN ×4 (08:00→20:09)
[2018-11-02] MEDS: ASCORBIC ACID 500 MG TAB GTB (08:54)
[2018-11-02] MEDS: MULTIVITAMINS THERAPEUTIC TAB GTB (08:55)
[2018-11-02] MEDS: BALSAM PERU/CASTOR OIL 60 GM TUBE TOP ×2 (08:55→20:26)
[2018-11-02] MEDS ORDERED: INSULIN ASPART [NOVOLOG] 3 ML PEN SC (09:00)
[2018-11-02] MEDS: Insulin NOVOLOG SS MODERATE Algorithm(NPO/TPN/ENTERAL FEEDS) SC ×4 (09:05→20:30)
[2018-11-02] MEDS: hydrALAzine 20 MG INJ IV ×3 (09:29→22:59)
[2018-11-02] MEDS: INSULIN GLARGINE [LANTus] (100 UNITS/ML) SYG SC (20:26)
[2018-11-03] MEDS: Insulin NOVOLOG SS MODERATE Algorithm(NPO/TPN/ENTERAL FEEDS) SC ×6 (01:03→19:55)
[2018-11-03] MEDS: ACCU-CHEK XX (01:41)
[2018-11-03] MEDS: hydrALAzine 20 MG INJ IV ×3 (03:50→15:01)
[2018-11-03] MEDS: LANSOPRAZOLE 30 MG CAP GTB (04:39)
[2018-11-03] MEDS: METOCLOPRAMIDE 10 MG INJ IV ×4 (04:39→23:57)
[2018-11-03 05:27] LABS: ADD MAN DIFF? NO
[2018-11-03 05:40] LABS: BASOPHIL # 0.1 10^3/ul (0.0-0.1); BASOPHILS % 0.9 % (0.0-2.0); EOSINOPHILS # 0.2 10^3/ul (0.0-0.5); EOSINOPHILS % 1.9 % (0.0-7.0); HEMATOCRIT 31.7 % (37.0-47.0); HEMOGLOBIN 9.2 g/dl (12.0-16.0); LYMPHOCYTES # 1.2 10^3/ul (0.8-2.9); LYMPHOCYTES % 12.9 % (15.0-51.0); MEAN CORPUSCULAR HEMOGLOBIN 27.5 pg (29.0-33.0); MEAN CORPUSCULAR VOLUME 94.9 fl (82.0-101.0); MEAN PLATELET VOLUME 13.5 fl (7.4-10.4); MONOCYTE # 0.5 10^3/ul (0.3-0.9); MONOCYTES % 5.6 % (0.0-11.0); NEUTROPHILS % 77.3 % (39.0-77.0); NUCLEATED RED BLOOD CELLS # 0.1 10^3/ul (0.0-0.0); NUCLEATED RED BLOOD CELLS% 0.9 /100WBC (0.0-0.0); RED BLOOD COUNT 3.34 10^6/ul (4.20-5.40); RED CELL DISTRIBUTION WIDTH 20.2 % (11.5-14.5)
[2018-11-03 05:40] LABS: WHITE BLOOD COUNT 9.1 10^3/ul (4.8-10.8)
[2018-11-03 05:57] LABS: PLATELET COUNT 134 10^3/UL (140-415); POSITIVE DIFF @See below
[2018-11-03 05:58] LABS: ANION GAP 12 (5-13); BLOOD UREA NITROGEN 94 mg/dl (7-20); CALCIUM 8.6 mg/dl (8.4-10.2); CARBON DIOXIDE 26 mmol/L (21-31); CHLORIDE 120 mmol/L (97-110); CREATININE 2.11 mg/dl (0.44-1.00); GLUCOSE 143 mg/dl (70-220); MAGNESIUM 2.9 mg/dl (1.7-2.5); SODIUM 158 mmol/L (135-144)
[2018-11-03] MEDS: BALSAM PERU/CASTOR OIL 60 GM TUBE TOP ×2 (07:56→19:56)
[2018-11-03] MEDS: MULTIVITAMINS THERAPEUTIC TAB GTB (07:56)
[2018-11-03] MEDS: ASCORBIC ACID 500 MG TAB GTB (07:56)
[2018-11-03] MEDS: ALBUTEROL/IPRATROPIUM (NEB) 3 ML AMP HHN ×3 (10:10→21:05)
[2018-11-03 17:09] LABS: AADO2 Arterial 42.3 mmHg (7.0-24.0); Arterial Base Excess 0.9 mmol/L (-3.0-3); Arterial Blood Gas Oxygen Sat 95.2 mmHG (95.0-100.0); Arterial COHb 0.4 % (0.0-3.0); Arterial Fraction of Oxyhgb 94.7 % (93.0-99.0); Arterial HCO3 22.6 mmol/L (22.0-26.0); Arterial MetHb 0.1 % (0.0-1.5); Arterial pCO2 26.2 mmhg (35-45); MODE ROOM AIR; Site Right Brachial
[2018-11-03] MEDS: INSULIN GLARGINE [LANTus] (100 UNITS/ML) SYG SC (20:06)
[2018-11-03] MEDS: traZODone 50 MG TAB GTB (22:30)
[2018-11-04] MEDS: Insulin NOVOLOG SS MODERATE Algorithm(NPO/TPN/ENTERAL FEEDS) SC ×6 (01:09→20:30)
[2018-11-04] MEDS: ACCU-CHEK XX (01:27)
[2018-11-04] MEDS: traZODone 50 MG TAB GTB ×3 (05:45→20:19)
[2018-11-04] MEDS: LANSOPRAZOLE 30 MG CAP GTB (05:45)
[2018-11-04] MEDS: METOCLOPRAMIDE 10 MG INJ IV ×5 (06:00→23:22)
[2018-11-04 07:50] LABS: ADD MAN DIFF? NO
[2018-11-04 07:53] LABS: WHITE BLOOD COUNT 7.8 10^3/ul (4.8-10.8)
[2018-11-04 07:53] LABS: ABNORMAL IP MESSAGE 1; BASOPHILS % 0.5 % (0.0-2.0); EOSINOPHILS # 0.2 10^3/ul (0.0-0.5); EOSINOPHILS % 2.7 % (0.0-7.0); HEMATOCRIT 28.2 % (37.0-47.0); HEMOGLOBIN 8.1 g/dl (12.0-16.0); LYMPHOCYTES % 12.5 % (15.0-51.0); MEAN CORPUSCULAR HEMOGLOBIN 26.9 pg (29.0-33.0); MEAN CORPUSCULAR HGB CONC 28.7 g/dl (32.0-37.0); MEAN CORPUSCULAR VOLUME 93.7 fl (82.0-101.0); MEAN PLATELET VOLUME 13.2 fl (7.4-10.4); MONOCYTE # 0.4 10^3/ul (0.3-0.9); MONOCYTES % 4.5 % (0.0-11.0); NEUTROPHIL # 6.1 10^3/ul (1.6-7.5); NEUTROPHILS % 78.8 % (39.0-77.0); NUCLEATED RED BLOOD CELLS% 0.5 /100WBC (0.0-0.0); PLATELET COUNT 126 10^3/UL (140-415); RED BLOOD COUNT 3.01 10^6/ul (4.20-5.40); RED CELL DISTRIBUTION WIDTH 20.3 % (11.5-14.5)
[2018-11-04 07:58] LABS: POSITIVE DIFF @See below
[2018-11-04 08:21] LABS: ANION GAP 11 (5-13); BLOOD UREA NITROGEN 90 mg/dl (7-20); CALCIUM 8.2 mg/dl (8.4-10.2); CARBON DIOXIDE 27 mmol/L (21-31); CHLORIDE 113 mmol/L (97-110); CREATININE 1.91 mg/dl (0.44-1.00); GLUCOSE 184 mg/dl (70-220); POTASSIUM 3.9 mmol/L (3.5-5.1); SODIUM 151 mmol/L (135-144)
[2018-11-04] MEDS: ASCORBIC ACID 500 MG TAB GTB (09:08)
[2018-11-04] MEDS: MULTIVITAMINS THERAPEUTIC TAB GTB (09:08)
[2018-11-04] MEDS: BALSAM PERU/CASTOR OIL 60 GM TUBE TOP ×2 (09:09→20:20)
[2018-11-04] MEDS: ALBUTEROL/IPRATROPIUM (NEB) 3 ML AMP HHN ×4 (10:01→20:56)
[2018-11-04] MEDS: FUROSEMIDE 40 MG INJ IV (14:02)
[2018-11-04] MEDS: INSULIN GLARGINE [LANTus] (100 UNITS/ML) SYG SC (20:17)
[2018-11-05] MEDS: Insulin NOVOLOG SS MODERATE Algorithm(NPO/TPN/ENTERAL FEEDS) SC ×6 (01:00→21:00)
[2018-11-05] MEDS: ACCU-CHEK XX (02:00)
[2018-11-05] MEDS: METOCLOPRAMIDE 10 MG INJ IV ×3 (05:00→18:10)
[2018-11-05] MEDS: LANSOPRAZOLE 30 MG CAP GTB (05:00)
[2018-11-05] MEDS: ALBUTEROL/IPRATROPIUM (NEB) 3 ML AMP HHN ×4 (09:00→21:31)
[2018-11-05 09:14] LABS: ADD MAN DIFF? NO
[2018-11-05 09:18] LABS: WHITE BLOOD COUNT 11.2 10^3/ul (4.8-10.8)
[2018-11-05 09:18] LABS: ABNORMAL IP MESSAGE 1; BASOPHILS % 0.2 % (0.0-2.0); EOSINOPHILS # 0.1 10^3/ul (0.0-0.5); EOSINOPHILS % 0.7 % (0.0-7.0); HEMATOCRIT 26.5 % (37.0-47.0); HEMOGLOBIN 7.9 g/dl (12.0-16.0); LYMPHOCYTES # 0.7 10^3/ul (0.8-2.9); LYMPHOCYTES % 5.8 % (15.0-51.0); MEAN CORPUSCULAR HEMOGLOBIN 27.6 pg (29.0-33.0); MEAN CORPUSCULAR HGB CONC 29.8 g/dl (32.0-37.0); MEAN CORPUSCULAR VOLUME 92.7 fl (82.0-101.0); MEAN PLATELET VOLUME 13.4 fl (7.4-10.4); MONOCYTE # 0.5 10^3/ul (0.3-0.9); NEUTROPHILS % 88.8 % (39.0-77.0); NUCLEATED RED BLOOD CELLS% 0.2 /100WBC (0.0-0.0); PLATELET COUNT 129 10^3/UL (140-415); RED BLOOD COUNT 2.86 10^6/ul (4.20-5.40)
[2018-11-05 09:21] LABS: POSITIVE DIFF @See below
[2018-11-05] MEDS: ASCORBIC ACID 500 MG TAB GTB (09:22)
[2018-11-05] MEDS: MULTIVITAMINS THERAPEUTIC TAB GTB (09:23)
[2018-11-05 09:46] LABS: ANION GAP 9 (5-13); BLOOD UREA NITROGEN 94 mg/dl (7-20); CALCIUM 7.8 mg/dl (8.4-10.2); CARBON DIOXIDE 27 mmol/L (21-31); CHLORIDE 110 mmol/L (97-110); CREATININE 1.87 mg/dl (0.44-1.00); GLUCOSE 100 mg/dl (70-220); POTASSIUM 3.6 mmol/L (3.5-5.1); SODIUM 146 mmol/L (135-144)
[2018-11-05 12:13] LABS: RETICULOCYTE RBC 2.82
[2018-11-05 12:13] LABS: RETICULOCYTE COUNT # 0.099 X10^6 (0.020-0.110); RETICULOCYTE COUNT % 3.5 % (0.5-1.5)
[2018-11-05 12:36] LABS: IRON 35 ug/dl (35-150)
[2018-11-05 12:46] LABS: % IRON SATURATION 14 % SAT (22-52); TOTAL IRON BINDING CAPACITY 256 ug/dl (241-421)
[2018-11-05 13:13] LABS: FERRITIN 33.3 ng/ml (11.1-264.0)
[2018-11-05 13:48] LABS: FOLATE > 20.0 ng/ml (2.8-20.0)
[2018-11-05] MEDS: BALSAM PERU/CASTOR OIL 60 GM TUBE TOP ×2 (21:00→22:01)
[2018-11-05] MEDS: INSULIN GLARGINE [LANTus] (100 UNITS/ML) SYG SC (22:05)
[2018-11-06] MEDS: Insulin NOVOLOG SS MODERATE Algorithm(NPO/TPN/ENTERAL FEEDS) SC ×6 (01:00→20:12)
[2018-11-06] MEDS: METOCLOPRAMIDE 10 MG INJ IV ×4 (01:49→17:13)
[2018-11-06] MEDS: ACCU-CHEK XX (02:16)
[2018-11-06] MEDS: DEXTROSE 50% 50 ML SYRINGE IV (05:24)
[2018-11-06] MEDS: LANSOPRAZOLE 30 MG CAP GTB (05:59)
[2018-11-06 08:11] LABS: ADD MAN DIFF? NO
[2018-11-06 08:14] LABS: BASOPHIL # 0.1 10^3/ul (0.0-0.1); BASOPHILS % 0.8 % (0.0-2.0); EOSINOPHILS # 0.2 10^3/ul (0.0-0.5); EOSINOPHILS % 2.5 % (0.0-7.0); HEMATOCRIT 27.8 % (37.0-47.0); HEMOGLOBIN 8.2 g/dl (12.0-16.0); LYMPHOCYTES # 1.1 10^3/ul (0.8-2.9); LYMPHOCYTES % 15.2 % (15.0-51.0); MEAN CORPUSCULAR HEMOGLOBIN 27.3 pg (29.0-33.0); MEAN CORPUSCULAR HGB CONC 29.5 g/dl (32.0-37.0); MEAN CORPUSCULAR VOLUME 92.7 fl (82.0-101.0); MEAN PLATELET VOLUME 12.1 fl (7.4-10.4); MONOCYTE # 0.4 10^3/ul (0.3-0.9); MONOCYTES % 5.7 % (0.0-11.0); NEUTROPHIL # 5.5 10^3/ul (1.6-7.5); NEUTROPHILS % 75.1 % (39.0-77.0); NUCLEATED RED BLOOD CELLS% 0.3 /100WBC (0.0-0.0); PLATELET COUNT 118 10^3/UL (140-415); RED CELL DISTRIBUTION WIDTH 20.2 % (11.5-14.5)
[2018-11-06 08:14] LABS: WHITE BLOOD COUNT 7.3 10^3/ul (4.8-10.8)
[2018-11-06] MEDS: ALBUTEROL/IPRATROPIUM (NEB) 3 ML AMP HHN ×4 (08:29→21:45)
[2018-11-06 08:32] LABS: INR 1.12; PROTIME 14.5 Sec (11.9-14.9); PT RATIO 1.1
[2018-11-06 08:33] LABS: PARTIAL THROMBOPLASTIN TIME 29.9 Sec (23.0-35.0)
[2018-11-06 08:34] LABS: ANION GAP 8 (5-13); BLOOD UREA NITROGEN 85 mg/dl (7-20); CALCIUM 7.9 mg/dl (8.4-10.2); CARBON DIOXIDE 26 mmol/L (21-31); CHLORIDE 113 mmol/L (97-110); GLUCOSE 96 mg/dl (70-220); POTASSIUM 3.8 mmol/L (3.5-5.1); SODIUM 147 mmol/L (135-144)
[2018-11-06] MEDS: MULTIVITAMINS THERAPEUTIC TAB GTB (08:45)
[2018-11-06] MEDS: ASCORBIC ACID 500 MG TAB GTB (08:45)
[2018-11-06] MEDS: BALSAM PERU/CASTOR OIL 60 GM TUBE TOP ×2 (08:46→20:14)
[2018-11-06] MEDS: LIDOCAINE 100 MG SYRINGE (11:05)
[2018-11-06] MEDS: FENTAnyl 50 MCG/ML VIAL (11:05)
[2018-11-06] MEDS: PROPOFOL 40 ML (11:05)
[2018-11-06] MEDS: SUCRALFATE (100 MG/ML) 10ML CUP GTB ×3 (12:28→20:07)
[2018-11-06] MEDS: ONDANSETRON 4 MG INJ IV ×2 (12:28→17:13)
[2018-11-06] MEDS: INSULIN GLARGINE [LANTus] (100 UNITS/ML) SYG SC (20:11)
[2018-11-07] MEDS: ACCU-CHEK XX (00:31)
[2018-11-07] MEDS: Insulin NOVOLOG SS MODERATE Algorithm(NPO/TPN/ENTERAL FEEDS) SC ×6 (00:31→20:26)
[2018-11-07] MEDS: METOCLOPRAMIDE 10 MG INJ IV ×4 (00:31→17:20)
[2018-11-07] MEDS: LANSOPRAZOLE 30 MG CAP GTB (05:10)
[2018-11-07] MEDS: ALBUTEROL/IPRATROPIUM (NEB) 3 ML AMP HHN ×4 (08:32→21:38)
[2018-11-07] MEDS: SUCRALFATE (100 MG/ML) 10ML CUP GTB ×4 (09:39→20:25)
[2018-11-07] MEDS: MULTIVITAMINS THERAPEUTIC TAB GTB (09:40)
[2018-11-07] MEDS: ASCORBIC ACID 500 MG TAB GTB (09:40)
[2018-11-07] MEDS: ONDANSETRON 4 MG INJ IV (09:40)
[2018-11-07] MEDS: BALSAM PERU/CASTOR OIL 60 GM TUBE TOP ×2 (09:41→20:27)
[2018-11-07] MEDS: INSULIN GLARGINE [LANTus] (100 UNITS/ML) SYG SC (20:33)
[2018-11-08] MEDS: METOCLOPRAMIDE 10 MG INJ IV ×3 (00:42→11:40)
[2018-11-08] MEDS: Insulin NOVOLOG SS MODERATE Algorithm(NPO/TPN/ENTERAL FEEDS) SC ×6 (00:47→20:44)
[2018-11-08] MEDS: ACCU-CHEK XX (02:00)
[2018-11-08] MEDS: LANSOPRAZOLE 30 MG CAP GTB (05:57)
[2018-11-08 08:36] LABS: ADD MAN DIFF? NO
[2018-11-08 08:47] LABS: WHITE BLOOD COUNT 5.8 10^3/ul (4.8-10.8)
[2018-11-08 08:47] LABS: BASOPHIL # 0.1 10^3/ul (0.0-0.1); BASOPHILS % 0.9 % (0.0-2.0); EOSINOPHILS # 0.2 10^3/ul (0.0-0.5); EOSINOPHILS % 3.4 % (0.0-7.0); HEMATOCRIT 26.9 % (37.0-47.0); LYMPHOCYTES # 0.9 10^3/ul (0.8-2.9); LYMPHOCYTES % 16.1 % (15.0-51.0); MEAN CORPUSCULAR HEMOGLOBIN 28.2 pg (29.0-33.0); MEAN CORPUSCULAR HGB CONC 29.7 g/dl (32.0-37.0); MEAN CORPUSCULAR VOLUME 94.7 fl (82.0-101.0); MEAN PLATELET VOLUME 12.1 fl (7.4-10.4); MONOCYTE # 0.5 10^3/ul (0.3-0.9); MONOCYTES % 9.1 % (0.0-11.0); NEUTROPHIL # 4.1 10^3/ul (1.6-7.5); NUCLEATED RED BLOOD CELLS% 0.7 /100WBC (0.0-0.0); PLATELET COUNT 131 10^3/UL (140-415); RED BLOOD COUNT 2.84 10^6/ul (4.20-5.40); RED CELL DISTRIBUTION WIDTH 20.6 % (11.5-14.5)
[2018-11-08 09:08] LABS: ANION GAP 6 (5-13); BLOOD UREA NITROGEN 84 mg/dl (7-20); CALCIUM 7.8 mg/dl (8.4-10.2); CARBON DIOXIDE 28 mmol/L (21-31); CHLORIDE 114 mmol/L (97-110); CREATININE 1.94 mg/dl (0.44-1.00); GLUCOSE 98 mg/dl (70-220); POTASSIUM 3.8 mmol/L (3.5-5.1); SODIUM 148 mmol/L (135-144)
[2018-11-08] MEDS: MULTIVITAMINS THERAPEUTIC TAB GTB (09:12)
[2018-11-08] MEDS: ASCORBIC ACID 500 MG TAB GTB (09:12)
[2018-11-08] MEDS: SUCRALFATE (100 MG/ML) 10ML CUP GTB ×3 (09:12→20:42)
[2018-11-08] MEDS: FUROSEMIDE 40 MG INJ IV (09:12)
[2018-11-08] MEDS: BALSAM PERU/CASTOR OIL 60 GM TUBE TOP ×2 (09:15→20:45)
[2018-11-08] MEDS: ALBUTEROL/IPRATROPIUM (NEB) 3 ML AMP HHN ×3 (10:25→20:36)
[2018-11-08] MEDS: ERYTHROMYCIN BASE (DR) 250 MG CAP PO ×2 (14:20→21:30)
[2018-11-08] MEDS: ATORVASTATIN 20 MG TAB GTB (20:42)
[2018-11-08] MEDS: METOPROLOL 25 MG TAB GTB (20:44)
[2018-11-08] MEDS: INSULIN GLARGINE [LANTus] (100 UNITS/ML) SYG SC (20:53)
[2018-11-09] MEDS: ACCU-CHEK XX (02:00)
[2018-11-09] MEDS: Insulin NOVOLOG SS MODERATE Algorithm(NPO/TPN/ENTERAL FEEDS) SC ×6 (02:00→21:00)
[2018-11-09] MEDS: METOCLOPRAMIDE 10 MG INJ IV ×4 (02:13→18:27)
[2018-11-09] MEDS: LANSOPRAZOLE 30 MG CAP GTB (06:56)
[2018-11-09] MEDS: ERYTHROMYCIN BASE (DR) 250 MG CAP PO ×3 (06:56→21:22)
[2018-11-09] MEDS: ALBUTEROL/IPRATROPIUM (NEB) 3 ML AMP HHN ×4 (08:16→21:00)
[2018-11-09] MEDS: SUCRALFATE (100 MG/ML) 10ML CUP GTB ×4 (09:51→21:22)
[2018-11-09] MEDS: ASCORBIC ACID 500 MG TAB GTB (09:52)
[2018-11-09] MEDS: MULTIVITAMINS THERAPEUTIC TAB GTB (09:52)
[2018-11-09] MEDS: BALSAM PERU/CASTOR OIL 60 GM TUBE TOP ×2 (09:53→21:22)
[2018-11-09 10:02] LABS: ADD MAN DIFF? NO
[2018-11-09 10:04] LABS: WHITE BLOOD COUNT 6.5 10^3/ul (4.8-10.8)
[2018-11-09 10:04] LABS: BASOPHIL # 0.1 10^3/ul (0.0-0.1); BASOPHILS % 1.1 % (0.0-2.0); EOSINOPHILS # 0.2 10^3/ul (0.0-0.5); EOSINOPHILS % 3.7 % (0.0-7.0); HEMATOCRIT 27.2 % (37.0-47.0); HEMOGLOBIN 8.1 g/dl (12.0-16.0); LYMPHOCYTES # 1.1 10^3/ul (0.8-2.9); LYMPHOCYTES % 17.3 % (15.0-51.0); MEAN CORPUSCULAR HGB CONC 29.8 g/dl (32.0-37.0); MEAN CORPUSCULAR VOLUME 90.7 fl (82.0-101.0); MEAN PLATELET VOLUME 11.6 fl (7.4-10.4); MONOCYTE # 0.6 10^3/ul (0.3-0.9); MONOCYTES % 8.7 % (0.0-11.0); NEUTROPHIL # 4.5 10^3/ul (1.6-7.5); NEUTROPHILS % 68.7 % (39.0-77.0); NUCLEATED RED BLOOD CELLS # 0.1 10^3/ul (0.0-0.0); NUCLEATED RED BLOOD CELLS% 0.9 /100WBC (0.0-0.0); PLATELET COUNT 144 10^3/UL (140-415); RED CELL DISTRIBUTION WIDTH 20.2 % (11.5-14.5)
[2018-11-09 10:23] LABS: ANION GAP 7 (5-13); BLOOD UREA NITROGEN 87 mg/dl (7-20); CARBON DIOXIDE 28 mmol/L (21-31); CHLORIDE 111 mmol/L (97-110); CREATININE 2.08 mg/dl (0.44-1.00); GLUCOSE 65 mg/dl (70-220); POTASSIUM 4.5 mmol/L (3.5-5.1); SODIUM 146 mmol/L (135-144)
[2018-11-09] MEDS: ATORVASTATIN 20 MG TAB GTB (21:22)
[2018-11-09] MEDS: INSULIN GLARGINE [LANTus] (100 UNITS/ML) SYG SC (21:35)
[2018-11-10] MEDS: Insulin NOVOLOG SS MODERATE Algorithm(NPO/TPN/ENTERAL FEEDS) SC ×3 (01:00→09:00)
[2018-11-10] MEDS: METOCLOPRAMIDE 10 MG INJ IV ×4 (01:27→18:09)
[2018-11-10] MEDS: ACCU-CHEK XX (02:00)
[2018-11-10] MEDS: LANSOPRAZOLE 30 MG CAP GTB (05:38)
[2018-11-10] MEDS: ERYTHROMYCIN BASE (DR) 250 MG CAP PO ×3 (07:00→22:17)
[2018-11-10] MEDS: ALBUTEROL/IPRATROPIUM (NEB) 3 ML AMP HHN ×3 (07:46→20:50)
[2018-11-10] MEDS: MULTIVITAMINS THERAPEUTIC TAB GTB (09:24)
[2018-11-10] MEDS: SUCRALFATE (100 MG/ML) 10ML CUP GTB ×4 (09:24→20:14)
[2018-11-10] MEDS: ASCORBIC ACID 500 MG TAB GTB (09:24)
[2018-11-10] MEDS: BALSAM PERU/CASTOR OIL 60 GM TUBE TOP ×2 (09:26→22:18)
[2018-11-10] MEDS: INSULIN ASPART [NOVOLOG] 3 ML PEN SC ×2 (14:00→22:45)
[2018-11-10] MEDS: FUROSEMIDE 40 MG INJ IV (18:09)
[2018-11-10] MEDS: ATORVASTATIN 20 MG TAB GTB (20:14)
[2018-11-10] MEDS: INSULIN GLARGINE [LANTus] (100 UNITS/ML) SYG SC (20:27)
[2018-11-11] MEDS: METOCLOPRAMIDE 10 MG INJ IV ×4 (01:01→17:29)
[2018-11-11] MEDS: ACCU-CHEK XX (02:24)
[2018-11-11] MEDS: ERYTHROMYCIN BASE (DR) 250 MG CAP PO ×3 (05:48→21:26)
[2018-11-11] MEDS: LANSOPRAZOLE 30 MG CAP GTB (05:48)
[2018-11-11] MEDS: INSULIN ASPART [NOVOLOG] 3 ML PEN SC ×3 (07:02→21:25)
[2018-11-11] MEDS: ALBUTEROL/IPRATROPIUM (NEB) 3 ML AMP HHN ×4 (08:23→20:13)
[2018-11-11] MEDS: ASCORBIC ACID 500 MG TAB GTB (08:39)
[2018-11-11] MEDS: SUCRALFATE (100 MG/ML) 10ML CUP GTB ×4 (08:39→21:13)
[2018-11-11] MEDS: MULTIVITAMINS THERAPEUTIC TAB GTB (08:39)
[2018-11-11] MEDS: BALSAM PERU/CASTOR OIL 60 GM TUBE TOP ×2 (08:41→21:13)
[2018-11-11 08:55] LABS: ADD MAN DIFF? NO
[2018-11-11 08:58] LABS: BASOPHILS % 0.7 % (0.0-2.0); EOSINOPHILS # 0.3 10^3/ul (0.0-0.5); HEMATOCRIT 26.3 % (37.0-47.0); HEMOGLOBIN 8.3 g/dl (12.0-16.0); LYMPHOCYTES # 0.8 10^3/ul (0.8-2.9); LYMPHOCYTES % 14.2 % (15.0-51.0); MEAN CORPUSCULAR HEMOGLOBIN 28.1 pg (29.0-33.0); MEAN CORPUSCULAR HGB CONC 31.6 g/dl (32.0-37.0); MEAN CORPUSCULAR VOLUME 89.2 fl (82.0-101.0); MEAN PLATELET VOLUME 11.4 fl (7.4-10.4); MONOCYTE # 0.5 10^3/ul (0.3-0.9); MONOCYTES % 8.5 % (0.0-11.0); NEUTROPHIL # 4.2 10^3/ul (1.6-7.5); NEUTROPHILS % 70.9 % (39.0-77.0); NUCLEATED RED BLOOD CELLS% 0.5 /100WBC (0.0-0.0); PLATELET COUNT 131 10^3/UL (140-415); RED BLOOD COUNT 2.95 10^6/ul (4.20-5.40); RED CELL DISTRIBUTION WIDTH 19.4 % (11.5-14.5)
[2018-11-11 08:58] LABS: WHITE BLOOD COUNT 5.9 10^3/ul (4.8-10.8)
[2018-11-11 09:15] LABS: ANION GAP 11 (5-13); BLOOD UREA NITROGEN 84 mg/dl (7-20); CALCIUM 7.8 mg/dl (8.4-10.2); CARBON DIOXIDE 26 mmol/L (21-31); CHLORIDE 107 mmol/L (97-110); CREATININE 1.86 mg/dl (0.44-1.00); GLUCOSE 101 mg/dl (70-220); POTASSIUM 3.4 mmol/L (3.5-5.1); SODIUM 144 mmol/L (135-144)
[2018-11-11] MEDS: VANCOMYCIN 1 GM (PMX) 250 ML IVPB (21:02)
[2018-11-11] MEDS: ATORVASTATIN 20 MG TAB GTB (21:13)
[2018-11-11] MEDS: INSULIN GLARGINE [LANTus] (100 UNITS/ML) SYG SC (21:24)
[2018-11-12] MEDS: METOCLOPRAMIDE 10 MG INJ IV ×5 (00:55→23:36)
[2018-11-12] MEDS: ACCU-CHEK XX (02:00)
[2018-11-12] MEDS: LANSOPRAZOLE 30 MG CAP GTB (05:08)
[2018-11-12] MEDS: ERYTHROMYCIN BASE (DR) 250 MG CAP PO ×3 (05:08→21:07)
[2018-11-12] MEDS: INSULIN ASPART [NOVOLOG] 3 ML PEN SC ×3 (05:27→21:47)
[2018-11-12] MEDS: ALBUTEROL/IPRATROPIUM (NEB) 3 ML AMP HHN ×4 (08:18→20:21)
[2018-11-12] MEDS: ASCORBIC ACID 500 MG TAB GTB (08:48)
[2018-11-12] MEDS: SUCRALFATE (100 MG/ML) 10ML CUP GTB ×4 (08:49→21:07)
[2018-11-12] MEDS: MULTIVITAMINS THERAPEUTIC TAB GTB (08:49)
[2018-11-12] MEDS: BALSAM PERU/CASTOR OIL 60 GM TUBE TOP ×2 (08:49→21:48)
[2018-11-12] MEDS ORDERED: POTASSIUM CHLORIDE (1.33 MEQ/ML PO SYG) GTB (10:30)
[2018-11-12] MEDS: POTASSIUM CHLORIDE (SR) 20 MEQ TAB PO (11:14)
[2018-11-12] MEDS: FUROSEMIDE 40 MG INJ IV (11:45)
[2018-11-12] MEDS: ATORVASTATIN 20 MG TAB GTB (21:06)
[2018-11-12] MEDS: INSULIN GLARGINE [LANTus] (100 UNITS/ML) SYG SC (21:47)
[2018-11-13] MEDS: ACCU-CHEK XX (01:33)
[2018-11-13] MEDS: hydrALAzine 20 MG INJ IV (04:03)
[2018-11-13] MEDS: LANSOPRAZOLE 30 MG CAP GTB (05:07)
[2018-11-13] MEDS: METOCLOPRAMIDE 10 MG INJ IV ×4 (05:07→23:32)
[2018-11-13] MEDS: ERYTHROMYCIN BASE (DR) 250 MG CAP PO ×3 (05:07→20:51)
[2018-11-13] MEDS: INSULIN ASPART [NOVOLOG] 3 ML PEN SC ×3 (05:36→21:02)
[2018-11-13 06:19] LABS: ADD MAN DIFF? NO
[2018-11-13 06:25] LABS: BASOPHILS % 0.7 % (0.0-2.0); EOSINOPHILS # 0.2 10^3/ul (0.0-0.5); EOSINOPHILS % 3.9 % (0.0-7.0); HEMATOCRIT 27.7 % (37.0-47.0); HEMOGLOBIN 8.6 g/dl (12.0-16.0); LYMPHOCYTES # 0.8 10^3/ul (0.8-2.9); LYMPHOCYTES % 14.4 % (15.0-51.0); MEAN CORPUSCULAR HEMOGLOBIN 27.4 pg (29.0-33.0); MEAN CORPUSCULAR VOLUME 88.2 fl (82.0-101.0); MEAN PLATELET VOLUME 12.1 fl (7.4-10.4); MONOCYTE # 0.3 10^3/ul (0.3-0.9); NEUTROPHIL # 4.2 10^3/ul (1.6-7.5); NEUTROPHILS % 74.1 % (39.0-77.0); PLATELET COUNT 158 10^3/UL (140-415); RED BLOOD COUNT 3.14 10^6/ul (4.20-5.40); RED CELL DISTRIBUTION WIDTH 19.3 % (11.5-14.5)
[2018-11-13 06:25] LABS: WHITE BLOOD COUNT 5.6 10^3/ul (4.8-10.8)
[2018-11-13 06:49] LABS: ANION GAP 11 (5-13); BLOOD UREA NITROGEN 85 mg/dl (7-20); CALCIUM 7.8 mg/dl (8.4-10.2); CARBON DIOXIDE 27 mmol/L (21-31); CHLORIDE 105 mmol/L (97-110); CREATININE 1.83 mg/dl (0.44-1.00); GLUCOSE 140 mg/dl (70-220); POTASSIUM 3.7 mmol/L (3.5-5.1); SODIUM 143 mmol/L (135-144)
[2018-11-13] MEDS: ALBUTEROL/IPRATROPIUM (NEB) 3 ML AMP HHN ×4 (08:29→21:04)
[2018-11-13] MEDS: MULTIVITAMINS THERAPEUTIC TAB GTB (08:51)
[2018-11-13] MEDS: ASCORBIC ACID 500 MG TAB GTB (08:52)
[2018-11-13] MEDS: SUCRALFATE (100 MG/ML) 10ML CUP GTB ×4 (08:52→21:06)
[2018-11-13] MEDS: BALSAM PERU/CASTOR OIL 60 GM TUBE TOP ×2 (08:52→21:06)
[2018-11-13] MEDS: POTASSIUM CHLORIDE 20 MEQ POWDER FOR ORAL SOLN PO (11:21)
[2018-11-13] MEDS: FUROSEMIDE 40 MG INJ IV (11:26)
[2018-11-13] MEDS: ONDANSETRON 4 MG INJ IV (12:38)
[2018-11-13] MEDS: ATORVASTATIN 20 MG TAB GTB (20:52)
[2018-11-13] MEDS: INSULIN GLARGINE [LANTus] (100 UNITS/ML) SYG SC (21:02)
[2018-11-14] MEDS: ACCU-CHEK XX (02:09)
[2018-11-14] MEDS: LANSOPRAZOLE 30 MG CAP GTB (05:14)
[2018-11-14] MEDS: ERYTHROMYCIN BASE (DR) 250 MG CAP PO ×3 (05:14→21:07)
[2018-11-14] MEDS: METOCLOPRAMIDE 10 MG INJ IV ×3 (05:14→17:00)
[2018-11-14] MEDS: INSULIN ASPART [NOVOLOG] 3 ML PEN SC ×3 (05:46→23:02)
[2018-11-14] MEDS: ALBUTEROL/IPRATROPIUM (NEB) 3 ML AMP HHN ×4 (08:59→20:02)
[2018-11-14] MEDS: SUCRALFATE (100 MG/ML) 10ML CUP GTB ×4 (09:03→20:59)
[2018-11-14] MEDS: MULTIVITAMINS THERAPEUTIC TAB GTB (09:03)
[2018-11-14] MEDS: ASCORBIC ACID 500 MG TAB GTB (09:04)
[2018-11-14] MEDS: BALSAM PERU/CASTOR OIL 60 GM TUBE TOP ×2 (09:11→21:01)
[2018-11-14] MEDS ORDERED: POTASSIUM CHLORIDE (1.33 MEQ/ML PO SYG) GTB (14:30)
[2018-11-14] MEDS: POTASSIUM CHLORIDE 20 MEQ POWDER FOR ORAL SOLN GTB (15:01)
[2018-11-14] MEDS: FUROSEMIDE 40 MG INJ IV (15:02)
[2018-11-14] MEDS: INSULIN GLARGINE [LANTus] (100 UNITS/ML) SYG SC (21:00)
[2018-11-14] MEDS: ATORVASTATIN 20 MG TAB GTB (21:00)
[2018-11-15] MEDS: METOCLOPRAMIDE 10 MG INJ IV ×4 (00:10→17:40)
[2018-11-15] MEDS: ACCU-CHEK XX (01:05)
[2018-11-15] MEDS: LANSOPRAZOLE 30 MG CAP GTB (06:09)
[2018-11-15] MEDS: ERYTHROMYCIN BASE (DR) 250 MG CAP PO ×3 (06:09→21:09)
[2018-11-15] MEDS: INSULIN ASPART [NOVOLOG] 3 ML PEN SC ×3 (07:29→21:28)
[2018-11-15] MEDS: SUCRALFATE (100 MG/ML) 10ML CUP GTB ×4 (08:50→21:09)
[2018-11-15] MEDS: MULTIVITAMINS THERAPEUTIC TAB GTB (08:50)
[2018-11-15] MEDS: ASCORBIC ACID 500 MG TAB GTB (08:50)
[2018-11-15] MEDS: POTASSIUM CHLORIDE 20 MEQ POWDER FOR ORAL SOLN GTB (08:50)
[2018-11-15] MEDS: BALSAM PERU/CASTOR OIL 60 GM TUBE TOP ×2 (08:51→21:10)
[2018-11-15] MEDS: FUROSEMIDE 40 MG INJ IV (08:51)
[2018-11-15] MEDS: ALBUTEROL/IPRATROPIUM (NEB) 3 ML AMP HHN ×4 (09:52→20:11)
[2018-11-15] MEDS: POTASSIUM CHLORIDE (SR) 20 MEQ TAB PO (15:45)
[2018-11-15 19:03] LABS: ANION GAP 9 (5-13); BLOOD UREA NITROGEN 98 mg/dl (7-20); CALCIUM 7.9 mg/dl (8.4-10.2); CARBON DIOXIDE 28 mmol/L (21-31); CHLORIDE 107 mmol/L (97-110); CREATININE 2.08 mg/dl (0.44-1.00); GLUCOSE 143 mg/dl (70-220); POTASSIUM 5.1 mmol/L (3.5-5.1); SODIUM 144 mmol/L (135-144)
[2018-11-15] MEDS: ATORVASTATIN 20 MG TAB GTB (21:09)
[2018-11-15] MEDS: INSULIN GLARGINE [LANTus] (100 UNITS/ML) SYG SC (21:28)
[2018-11-16] MEDS: METOCLOPRAMIDE 10 MG INJ IV ×4 (01:16→18:00)
[2018-11-16] MEDS: ACCU-CHEK XX (01:17)
[2018-11-16 05:55] LABS: ADD MAN DIFF? NO
[2018-11-16 05:58] LABS: BASOPHIL # 0.1 10^3/ul (0.0-0.1); BASOPHILS % 0.8 % (0.0-2.0); EOSINOPHILS # 0.2 10^3/ul (0.0-0.5); EOSINOPHILS % 3.4 % (0.0-7.0); HEMATOCRIT 27.1 % (37.0-47.0); HEMOGLOBIN 8.3 g/dl (12.0-16.0); LYMPHOCYTES # 1.1 10^3/ul (0.8-2.9); LYMPHOCYTES % 17.3 % (15.0-51.0); MEAN CORPUSCULAR HEMOGLOBIN 27.4 pg (29.0-33.0); MEAN CORPUSCULAR HGB CONC 30.6 g/dl (32.0-37.0); MEAN CORPUSCULAR VOLUME 89.4 fl (82.0-101.0); MEAN PLATELET VOLUME 11.4 fl (7.4-10.4); MONOCYTE # 0.5 10^3/ul (0.3-0.9); MONOCYTES % 8.4 % (0.0-11.0); NEUTROPHIL # 4.3 10^3/ul (1.6-7.5); NEUTROPHILS % 69.5 % (39.0-77.0); PLATELET COUNT 155 10^3/UL (140-415); RED BLOOD COUNT 3.03 10^6/ul (4.20-5.40); RED CELL DISTRIBUTION WIDTH 19.3 % (11.5-14.5)
[2018-11-16 05:58] LABS: WHITE BLOOD COUNT 6.2 10^3/ul (4.8-10.8)
[2018-11-16] MEDS: LANSOPRAZOLE 30 MG CAP GTB (06:30)
[2018-11-16] MEDS: ERYTHROMYCIN BASE (DR) 250 MG CAP PO ×3 (06:30→21:46)
[2018-11-16 06:40] LABS: ANION GAP 10 (5-13); BLOOD UREA NITROGEN 99 mg/dl (7-20); CARBON DIOXIDE 28 mmol/L (21-31); CHLORIDE 107 mmol/L (97-110); CREATININE 2.08 mg/dl (0.44-1.00); GLUCOSE 128 mg/dl (70-220); POTASSIUM 4.9 mmol/L (3.5-5.1); SODIUM 145 mmol/L (135-144)
[2018-11-16] MEDS: INSULIN ASPART [NOVOLOG] 3 ML PEN SC ×3 (06:42→21:50)
[2018-11-16] MEDS: MULTIVITAMINS THERAPEUTIC TAB GTB (08:39)
[2018-11-16] MEDS: ASCORBIC ACID 500 MG TAB GTB (08:39)
[2018-11-16] MEDS: SUCRALFATE (100 MG/ML) 10ML CUP GTB ×4 (08:39→20:48)
[2018-11-16] MEDS: FUROSEMIDE 40 MG INJ IV (08:40)
[2018-11-16] MEDS: BALSAM PERU/CASTOR OIL 60 GM TUBE TOP ×2 (08:40→20:49)
[2018-11-16] MEDS: ALBUTEROL/IPRATROPIUM (NEB) 3 ML AMP HHN ×4 (09:15→20:57)
[2018-11-16] MEDS: ATORVASTATIN 20 MG TAB GTB (20:48)
[2018-11-16] MEDS: INSULIN GLARGINE [LANTus] (100 UNITS/ML) SYG SC (20:52)
[2018-11-17] MEDS: METOCLOPRAMIDE 10 MG INJ IV ×3 (00:11→11:47)
[2018-11-17] MEDS: ACCU-CHEK XX (02:01)
[2018-11-17] MEDS: LANSOPRAZOLE 30 MG CAP GTB (05:05)
[2018-11-17] MEDS: ERYTHROMYCIN BASE (DR) 250 MG CAP PO ×2 (05:05→14:24)
[2018-11-17] MEDS: INSULIN ASPART [NOVOLOG] 3 ML PEN SC ×2 (05:18→14:33)
[2018-11-17] MEDS: BALSAM PERU/CASTOR OIL 60 GM TUBE TOP (08:08)
[2018-11-17] MEDS: MULTIVITAMINS THERAPEUTIC TAB GTB (08:08)
[2018-11-17] MEDS: SUCRALFATE (100 MG/ML) 10ML CUP GTB ×2 (08:08→14:24)
[2018-11-17] MEDS: ASCORBIC ACID 500 MG TAB GTB (08:08)
[2018-11-17] MEDS: FUROSEMIDE 40 MG INJ IV (08:08)
[2018-11-17] MEDS: ALBUTEROL/IPRATROPIUM (NEB) 3 ML AMP HHN ×2 (09:27→14:20)
== END 2018-11-17 16:03 | DRG 193 ==
LOC: E/R 17:36 → 6WM 20:06
PROVIDERS: Internal Medicine
PROC: 0DB68ZX Excision of Stomach, Via Natural or Artificial Opening Endoscopic, Diagnostic (ICD-10-PCS; 2018-11-06 10:00)
PROC: 30233N1 Transfusion of Nonautologous Red Blood Cells into Peripheral Vein, Percutaneous Approach (ICD-10-PCS; principal; 2018-11-06 10:01)
DX: J18.9 Pneumonia, unspecified organism (principal); I50.33 Acute on chronic diastolic (congestive) heart failure; E87.0 Hyperosmolality and hypernatremia; N17.9 Acute kidney failure, unspecified; E44.0 Moderate protein-calorie malnutrition; I13.0 Hypertensive heart and chronic kidney disease with heart failure and stage 1 through stage 4 chronic kidney disease, or unspecified chronic kidney disease; L97.419 Non-pressure chronic ulcer of right heel and midfoot with unspecified severity; R13.10 Dysphagia, unspecified; N18.9 Chronic kidney disease, unspecified; I25.10 Atherosclerotic heart disease of native coronary artery without angina pectoris; I48.91 Unspecified atrial fibrillation; E11.22 Type 2 diabetes mellitus with diabetic chronic kidney disease; F01.50 Vascular dementia, unspecified severity, without behavioral disturbance, psychotic disturbance, mood disturbance, and anxiety; Z74.01 Bed confinement status; Z93.1 Gastrostomy status; I25.2 Old myocardial infarction; E11.43 Type 2 diabetes mellitus with diabetic autonomic (poly)neuropathy; K31.84 Gastroparesis; D63.1 Anemia in chronic kidney disease; E11.51 Type 2 diabetes mellitus with diabetic peripheral angiopathy without gangrene; I70.234 Atherosclerosis of native arteries of right leg with ulceration of heel and midfoot; I70.202 Unspecified atherosclerosis of native arteries of extremities, left leg; K29.60 Other gastritis without bleeding; K28.9 Gastrojejunal ulcer, unspecified as acute or chronic, without hemorrhage or perforation; K21.0 Gastro-esophageal reflux disease with esophagitis; Z87.820 Personal history of traumatic brain injury; E87.6 Hypokalemia
CPT/HCPCS: 36415; 36430; 36600; 71045; 74018; 80048; 80053; 80202; 81001; 82271; 82607; 82728; 82746; 82803; 82962; 83540; 83605; 83735; 83880; 84145; 84484; 85025; 85045; 85610; 85730; 86850; 86900; 86901; 86920; 87040-91; 87070; 87081; 87086; 88305; 88312; 93005; 93922; 94640; 94664; 99285-25